=== PATIENT | female | born 1975 | race Caucasian/White ===

== ENCOUNTER → 2019-05-19 10:07 | Outpatient (BNVA) | payer OTHER, SELFPAY | PROVIDERS: Family Provider Family Medicine; PCP Family Medicine; Visit Provider Nurse Practitioner Family | DX: M25.512 Pain in left shoulder (principal) | CPT/HCPCS: 73030 ==

== ENCOUNTER → 2019-07-31 10:58 | Outpatient (BNVA) | payer OTHER, SELFPAY | PROVIDERS: Family Provider Family Medicine; PCP Family Medicine; Visit Provider Counselor Professional | DX: F43.0 Acute stress reaction (principal); F33.1 Major depressive disorder, recurrent, moderate; E11.9 Type 2 diabetes mellitus without complications; E78.5 Hyperlipidemia, unspecified | CPT/HCPCS: 90791; 80053; 80061; 83036 ==

== ENCOUNTER → 2019-11-03 10:26 | Outpatient (BNVA) | payer OTHER, SELFPAY | PROVIDERS: Family Provider Family Medicine; PCP Family Medicine; Visit Provider Family Medicine | DX: I10 Essential (primary) hypertension (principal); E78.5 Hyperlipidemia, unspecified; F32.9 Major depressive disorder, single episode, unspecified; E11.42 Type 2 diabetes mellitus with diabetic polyneuropathy; F32.1 Major depressive disorder, single episode, moderate; I25.10 Atherosclerotic heart disease of native coronary artery without angina pectoris; M77.11 Lateral epicondylitis, right elbow; F43.21 Adjustment disorder with depressed mood | CPT/HCPCS: 80048; 83036 ==

== ENCOUNTER → 2020-02-19 11:04 | Outpatient (BNVA) | payer OTHER, SELFPAY | PROVIDERS: Family Provider Family Medicine; PCP Family Medicine; Visit Provider Family Medicine | DX: I10 Essential (primary) hypertension; E11.42 Type 2 diabetes mellitus with diabetic polyneuropathy; F32.1 Major depressive disorder, single episode, moderate; R79.89 Other specified abnormal findings of blood chemistry; F41.1 Generalized anxiety disorder; F43.21 Adjustment disorder with depressed mood; F51.02 Adjustment insomnia | CPT/HCPCS: 80048; 83036; 84443 ==

== ENCOUNTER → 2020-04-02 17:21 | Outpatient (BNVA) | payer OTHER, SELFPAY | PROVIDERS: Family Provider Family Medicine; PCP Family Medicine; Visit Provider Nurse Practitioner Family | DX: Z20.822 Contact with and (suspected) exposure to COVID-19 (principal); J11.1 Influenza due to unidentified influenza virus with other respiratory manifestations | CPT/HCPCS: 87400; 87635 ==

== ENCOUNTER → 2020-06-08 10:54 | Outpatient (BNVA) | payer OTHER, SELFPAY | PROVIDERS: Family Provider Family Medicine; PCP Family Medicine; Visit Provider Family Medicine | DX: I10 Essential (primary) hypertension (principal); R79.89 Other specified abnormal findings of blood chemistry; E78.5 Hyperlipidemia, unspecified; F32.1 Major depressive disorder, single episode, moderate; F51.02 Adjustment insomnia; F41.1 Generalized anxiety disorder; E11.42 Type 2 diabetes mellitus with diabetic polyneuropathy; M54.5 Low back pain; M62.830 Muscle spasm of back; I25.10 Atherosclerotic heart disease of native coronary artery without angina pectoris | CPT/HCPCS: 80053; 80061; 83036; 84443 ==

== ENCOUNTER 2020-06-10 12:05 | Outpatient (CLI) | payer OTHER, SELFPAY ==
--- NOTE | 2020-06-10 12:22 | XR_ITS ---
WS: [id number] Thoracic spine, 3 views, 06/10/2020 Clinical Data: M54.5 - Low back pain Comparison: None. Findings: No compression fractures are seen. The disc heights are normal. There are clips in the right upper quadrant from a cholecystectomy. XR/XR thoracic spine 3V* [id number] Impression: Negative thoracic spine.
--- NOTE | 2020-06-10 12:22 | XR_ITS ---
WS: [id number] Lumbar spine, 3 views, 06/10/2020 Clinical Data: M54.5 - Low back pain Comparison: None. Findings: No compression fractures or subluxation is seen. No disc space narrowing is seen. The transverse proc esses and SI joints are normal. There is minimal anterior osteoarthritic spurring from L3 through L5. There are clips in the right up per quadrant from a cholecystectomy. 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
== END 2020-06-10 12:06 | disposition home or self-care (01) ==
LOC: RAD 12:08
PROVIDERS: PCP Family Medicine; Visit Provider Family Medicine
DX: M54.5 Low back pain (principal); M47.816 Spondylosis without myelopathy or radiculopathy, lumbar region
CPT/HCPCS: 72072; 72100

== ENCOUNTER 2020-07-27 06:00 | Outpatient (RCR) | payer OTHER, SELFPAY | END 2020-08-09 23:59 | disposition home or self-care (01) | LOC: MPT 06:00 | PROVIDERS: PCP Family Medicine; Referring Provider Family Medicine; Visit Provider Family Medicine | DX: M54.9 Dorsalgia, unspecified (principal); G89.29 Other chronic pain | CPT/HCPCS: 97110; 97140; 97162; G0283 ==

== ENCOUNTER → 2020-08-03 08:37 | Outpatient (BNVA) | payer OTHER, SELFPAY | PROVIDERS: PCP Family Medicine; Visit Provider Counselor Professional | DX: F41.1 Generalized anxiety disorder (principal); F33.2 Major depressive disorder, recurrent severe without psychotic features; Z63.4 Disappearance and death of family member | CPT/HCPCS: 90791 ==

== ENCOUNTER → 2020-08-11 10:18 | Outpatient (BNVA) | payer OTHER, SELFPAY | PROVIDERS: PCP Family Medicine; Visit Provider Family Medicine | DX: I10 Essential (primary) hypertension; R79.89 Other specified abnormal findings of blood chemistry; E78.5 Hyperlipidemia, unspecified; M62.830 Muscle spasm of back; E11.42 Type 2 diabetes mellitus with diabetic polyneuropathy; F51.02 Adjustment insomnia; F41.1 Generalized anxiety disorder; F32.1 Major depressive disorder, single episode, moderate | CPT/HCPCS: 80048; 83036; 84439; 84443; 84481 ==

== ENCOUNTER → 2020-11-17 15:25 | Outpatient (BNVA) | payer OTHER, SELFPAY | PROVIDERS: PCP Family Medicine; Visit Provider Family Medicine | DX: I10 Essential (primary) hypertension; M62.830 Muscle spasm of back; F32.1 Major depressive disorder, single episode, moderate; E11.42 Type 2 diabetes mellitus with diabetic polyneuropathy; F51.02 Adjustment insomnia; F41.1 Generalized anxiety disorder | CPT/HCPCS: 80048; 83036 ==

== ENCOUNTER → 2021-02-09 10:31 | Outpatient (BNVA) | payer OTHER, SELFPAY | PROVIDERS: PCP Family Medicine; Visit Provider Family Medicine | DX: I10 Essential (primary) hypertension (principal); E11.9 Type 2 diabetes mellitus without complications; A09 Infectious gastroenteritis and colitis, unspecified; K29.70 Gastritis, unspecified, without bleeding; R11.2 Nausea with vomiting, unspecified | CPT/HCPCS: 80053; 83036; 85025 ==

== ENCOUNTER 2021-03-28 14:19 | Emergency (ER) | payer BC, SELFPAY ==
--- NOTE | 2021-03-28 14:28 | ECG_ITS ---
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: : 1975 Requested By: Ilia Stanley Order Number: [id number] Reading MD: HODAN HWANG Measurements Intervals [place] Rate: 92 P: 44 OK: 138 QRS: 14 QRSD: 89 T: 21 QT: 363 QTc: 451 Interpretive Statements SINUS RHYTHM INFERIOR MYOCARDIAL INFARCTION , PROBABLY OLD [40+ ms Q WAVE AND/OR ST/T ABNORMALITY IN II/aVF] Compared to ECG 10/02/2018 08:39:41 No significant changes Electronically Signed On 03-28-2021 20:53:28 AUDIO NARRATOR by HODAN HWANG [email or web address], [email or web address]/[id number] f
--- NOTE | 2021-03-28 14:28 | XR_ITS ---
WS: [id number] Exam: XR chest 1V portable [id number] Date/Time of Exam: 03/28/2021 2:45 PM Reason For Exam: chest pain Comparison 10/01/2018. Findings: The lungs are clear and fully expanded. Costophrenic angles are sharp. No infiltrates. Bronchovascula r relief appears normal. Cardiac silhouette is unremarkable. Bony elements are intact. XR/XR chest 1V portable [id number] IMPRESSION: Unremarkable chest radiograph.
[2021-03-28 14:33] VITALS: BP 130/79; PULSE 97; RESP 18; O2SAT 92; BMI 33.0
--- NOTE | 2021-03-28 14:50 | ED_ITS ---
HPI - Chest Pain General: Chief Complaint: Chest Pain Stated Complaint: CHEST PAIN Time Seen by Provider: 03/28/21 14:28 History of Present Illness: HPI narrative: 45-year-old female presents emergency room complaint of chest pain. She had onset of chest pain about an hour and 1/2 to 2 hours prior to arrival while at rest. She took 3 sublingual nitro 15 minutes apart with no relief she also took 4 baby aspirin prior to calling EMS. None of this gave her any relief she does have pain radiating to her back and a little bit into her shoulder she denies a ny diaphoresis or shortness of breath. She has a known history of coronary artery disease with angioplasty with stents 2 years ago. Additionally she has a history of diabetes mellitus. Prior to today she had not had any other episodes of chest discomfort. Since her previous intervention. MD complaint: chest pain Pertinent past history: coronary artery disease Onset (ago): hour(s) (2) Timing of current episode: episodic Prior episodes: No Onset: during rest Pain location: substernal and left chest Pain radiation: back, left shoulder and right shoulder Severity: moderate Quality: tightness and heaviness Relieving factors: nothing Associated symptoms: Deny abdominal pain, diaphoresis, dyspnea, fever(s), leg edema, nausea, palpitations, sense of impending doom, syncope or vomiting Treatment prior to arrival: aspirin and nitroglycerin Review of Systems Const: Denies: fever(s) or diaphoresis ENMT: Denies: throat pain, ear or mastoid pain, nasal discharge or nasal congestion Card: Denies: palpitations or syncope Resp: Denies: dyspnea GI: Denies: abdominal pain, nausea or vomiting : Denies: flank pain, difficulty voiding, dysuria, urinary frequency or urinary urgency Skin/Breast: Denies: rash or pruritus [facility] ED PFSH: Medical History Anemia CAD (coronary artery disease) Carpal tunnel syndrome, bilateral Chest pain Diabetes Does not tolerate metformin. Diabetic neuropathy Dyslipidemia HTN (hypertension) Major depressive disorder Shortness of breath ST elevation (STEMI) myocardial infarction involving left circumflex coronary artery Surgical History S/P appendectomy S/P cholecystectomy S/P coronary artery stent placement x2 April 2018 Social History Smoking and tobacco status: former smoker Quit status (tobacco): has quit using tobacco Alcohol intake: never Desire information about alcohol rehabilitation?: No Desire information about substance/drug rehabilitation?: No History of recent travel: No Current gender identity: Female Female Reproductive History: Spontaneous abortions: No Physical Exam Const: COMMON NORMALS: no acute distress GENERAL APPEARANCE: cooperative and comfortable ORIENTATION/CONSCIOUSNESS: Yes awake, Yes oriented to person, Yes oriented to place and Yes oriented to time HENMT: COMMON NORMALS: normocephalic, atraumatic and hearing grossly normal bilaterally HEAD & SCALP: normocephalic and atraumatic Neck/C-Spine: COMMON NORMALS: no JVD Resp: COMMON NORMALS: normal respiratory effort, No retractions, No use of accessory muscles and clear to auscultation bilaterally AUSCULTATION: clear to auscultation bilaterally Cardio: COMMON NORMALS: no JVD, regular rate, regular rhythm and No murmurs present (Cardio) RATE: regular rate RHYTHM: regular rhythm GI: COMMON NORMALS: Soft to palpation and No hepatosplenomegaly present AUSCULTATION: Yes normoactive bowel sounds PALPATION: Yes Soft to palpation, No Tenderness to palpation present (GI), No Guarding due to palpation present (G I) and Yes No hepatosplenomegaly present Extremity: COMMON NORMALS: normal to inspection, capillary refill normal, no clubbing, cyanosis or edema, no calf tenderness and no pedal edema Neuro: SENSORIUM/ORIENTATION: Yes oriented to person, Yes oriented to place and Yes oriented to time Skin: COMMON NORMALS: no rashes or lesions noted GENERAL SKIN EXAM: no rashes or lesions noted Course Vital Signs: Vital signs: Vital Signs Pulse Rate 80 03/28/21 18:47 Respiratory Rate 18 03/28/21 18:47 Blood Pressure 129/74 03/28/21 18:47 Pulse Oximetry 98 03/28/21 18:47 MDM - Chest Pain MDM Narrative Medical decision making narrative: Discussed options with the patient she is not currently on any and long-acting nitro. We will change her lisinopril dose continue her aspirin add isosorbide mononitrate. We discussed other option including admission for now she would prefer to go home we will have her follow-up with her liner checker return to the emergency room if any further problems. Discussed with noncardiac on-call cardiology they concur. Lab Data Result diagrams: 03/28/21 13:15 03/28/21 13:15 Labs: Lab Results 03/28/21 03/28/21 03/28/21 13:15 13:15 13:15 WBC 10.3 10^3/uL H 10^3/uL (4.0-10.0) RBC 5.81 10^6/uL H 10^6/uL (4.1-5.3) Hgb 14.8 g/dL g/dL (11.5-15.3) Hct 46.3 % % (37.0-47.0) MCV 79.7 fl L fl (81-99) MCH 25.5 pg L pg (28.0-34.0) MCHC 32.0 g/dL g/dL (30.0-36.0) RDW 13.7 % % (12.1-15.1) Plt Count 214 10^3/cmm 10^3/cmm (130-400) MPV 10.2 fL fL (7.4-10.4) Neut % (Auto) 70.7 % % Lymph % (Auto) 21.3 % % [place] % (Auto) 4.5 % % Eos % (Auto) 1.5 % % Baso % (Auto) 0.7 % % Neut # (Auto) 7.26 10^3/uL 10^3/uL (1.8-7.7) Lymph # (Auto) 2.2 10^3/uL 10^3/uL (0.8-4.8) [place] # (Auto) 0.5 10^3/uL 10^3/uL (0.2-0.9) Eos # (Auto) 0.2 10^3/uL 10^3/uL (0.0-0.8) Baso # (Auto) 0.1 10^3/uL 10^3/uL (0.0-0.1) Nucleated RBC % (auto) 0 % % Nucleated RBCs # 0.0 /100WBC /100WBC Sodium 131 mmol/L L mmol/L (136-145) Potassium 4.0 mmol/L mmol/L (3.5-5.1) Chloride 95 mmol/L L mmol/L (98-107) Carbon Dioxide 13 mmol/L L mmol/L (22-29) Anion Gap 27.0 H (5-19) BUN 20 mg/dL mg/dL (6-20) Creatinine 0.9 mg/dL mg/dL (0.5-0.9) GFR Calculation 67.1 mL/min L mL/min (90-130) Glucose 305 mg/dL H mg/dL (65-115) POC Glucose Calculated Osmolality 286 mOsm/kg mOsm/kg (285-295) Calcium 8.7 mg/dL mg/dL (8.5-10.5) Total Bilirubin 1.7 mg/dL H mg/dL (0.15-1.2) AST 18 U/L U/L (0-32) ALT 16 U/L U/L (0-33) Alkaline Phosphatase 139 IU/L H IU/L (35-105) Troponin T Baseline 14 ng/L H ng/L (0-10) Troponin T 120 Minute Delta Troponin T Total Protein 7.1 g/dL g/dL (6.6-8.7) Albumin 4.2 g/dL g/dL (3.5-5.2) Globulin 2.9 g/dL g/dL (1.3-4.6) 03/28/21 03/28/21 03/28/21 14:56 15:57 16:35 WBC RBC Hgb Hct MCV MCH MCHC RDW Plt Count MPV Neut % (Auto) Lymph % (Auto) [place] % (Auto) Eos % (Auto) Baso % (Auto) Neut # (Auto) Lymph # (Auto) [place] # (Auto) Eos # (Auto) Baso # (Auto) Nucleated RBC % (auto) Nucleated RBCs # Sodium Potassium Chloride Carbon Dioxide Anion Gap BUN Creatinine GFR Calculation Glucose POC Glucose 179 mg/dL H mg/dL (70-110) Calculated Osmolality Calcium Total Bilirubin AST ALT Alkaline Phosphatase Troponin T Baseline Troponin T 120 Minute Cancelled 11.74 ng/L H ng/L (0-10) Delta Troponin T Cancelled -2.26 ABS# L ABS# (0-10) Total Protein Albumin Globulin Discharge Plan Discharge Patient Disposition: Home Clinical Impression: Atypical chest pain, HTN (hypertension), CAD (coronary artery disease), Diabetes Condition: Stable Prescriptions: New isosorbide mononitrate 30 mg tablet extended release 24 hr 30 mg PO DAILY Qty: 30 0RF Changed lisinopril 40 mg tablet 20 mg PO DAILY 30 Days Qty: 30 2RF No Action atorvastatin 40 mg tablet 40 mg PO DAILY 90 Days Qty: 90 3RF nitroglycerin 0.4 mg tablet, sublingual 0.4 mg sublingual Q5M PRN (Reason: chest pain) Qty: 25 3RF Rx Instructions: do not exceed 3 doses per episode glimepiride 4 mg tablet 8 mg PO DAILY 30 Days Qty: 60 2RF hydroxyzine HCl 25 mg tablet 25 mg PO BID PRN (Reason: panic or insomnia) Qty: 60 2RF ondansetron HCl [Zofran] 4 mg tablet 4 mg PO Q8H PRN (Reason: nausea and vomiting) Qty: 30 1RF fluoxetine 40 mg capsule 40 mg PO DAILY 30 Days Qty: 30 2RF Farxiga 10 mg tablet 10 mg PO DAILY 30 Days Qty: 30 0RF aspirin 81 mg Tablet,Chewable 81 mg PO DAILY 0RF clopidogrel 75 mg tablet 75 mg PO DAILY 0RF gabapentin 300 mg capsule 300 mg PO QID 0RF metoprolol succinate 25 mg tablet extended release 24 hr 12.5 mg PO BEDTIME 0RF cyclobenzaprine 5 mg tablet 5 - 10 mg PO TID MDD 6 tabs PRN (Reason: muscle spasm) 0RF Trulicity 3 mg/0.5 mL pen injector 3 mg SUBCUT Q7D 0RF Rx Instructions: ON SUNDAYS Discharge Orders: Discharge ED (Routine); Ordered 03/28/21 Ordered By: Ilia Buck Referrals: Serena Caicedo MD [Primary Care Provider] - Discharge Diet: Usual diet Discharge Activity: Limit activity as instructed Patient Instructions: Opioid Safety Activity Restrictions/Additional Instructions: Avoid strenuous activity. Case management will set up a Lexiscan sestamibi stress test. Follow-up with your primary care doctor or your liner checker within the next Coding Level of Care Code ED Proof Load Mechanic for Aj Sam
[2021-03-28 15:21] LABS: Basophils # 0.1 10^3/uL (0.0-0.1); Basophils % 0.7 %; Eosinophils # 0.2 10^3/uL (0.0-0.8); Eosinophils % 1.5 %; Hematocrit 46.3 % (37.0-47.0); Hemoglobin 14.8 g/dL (11.5-15.3); Lymphocytes # 2.2 10^3/uL (0.8-4.8); Lymphocytes % 21.3 %; Mean Corpuscular Hemoglobin 25.5 pg (28.0-34.0); Mean Corpuscular Volume 79.7 fl (81-99); Mean Platelet Volume 10.2 fL (7.4-10.4); Monocytes # 0.5 10^3/uL (0.2-0.9); Monocytes % 4.5 %; Neutrophils # 7.26 10^3/uL (1.8-7.7); Neutrophils % 70.7 %; Nucleated Red Blood Cells % 0 %; Platelet Count 214 10^3/cmm (130-400); Red Blood Count 5.81 10^6/uL (4.1-5.3); Red Cell Distribution Width 13.7 % (12.1-15.1); White Blood Count 10.3 10^3/uL (4.0-10.0)
[2021-03-28 15:36] LABS: Alanine Aminotransferase 16 U/L (0-33); Albumin Level 4.2 g/dL (3.5-5.2); Alkaline Phosphatase 139 IU/L (35-105); Blood Urea Nitrogen 20 mg/dL (6-20); Calcium 8.7 mg/dL (8.5-10.5); Carbon Dioxide 13 mmol/L (22-29); Chloride 95 mmol/L (98-107); Globulin 2.9 g/dL (1.3-4.6); Glomerular Filtration Rate 67.1 mL/min (90-130); Glucose 305 mg/dL (65-115); Osmolality Calculated 286 mOsm/kg (285-295); Sodium 131 mmol/L (136-145); Total Bilirubin 1.7 mg/dL (0.15-1.2); Total Protein 7.1 g/dL (6.6-8.7)
[2021-03-28 15:37] LABS: Troponin(5th) Baseline 14 ng/L (0-10)
[2021-03-28 15:39] LABS: Aspartate Amino Transferase 18 U/L (0-32)
[2021-03-28 16:00] VITALS: BP 119/89; PULSE 91; RESP 13; O2SAT 95
--- NOTE | 2021-03-28 16:28 | ECG_ITS ---
[facility] Test Date: 2021-03-28 Pat Name: Kimberly Agarwal Department: Room: Gender: Female Lay Brother: : 1975 Requested By: Ilia Stanley Order Number: [id number] Reading MD: HODAN HWANG Measurements Intervals [place] Rate: 88 P: 45 DC: 144 QRS: 22 QRSD: 89 T: 40 QT: 384 QTc: 467 Interpretive Statements SINUS RHYTHM Compared to ECG 10/02/2018 08:39:41 Myocardial infarct finding no longer present Electronically Signed On 03-28-2021 20:56:51 CORPORATE SPECIALIST by HODAN HWANG [id number]
[2021-03-28 16:59] LABS: Troponin 5 2HR 11.74 ng/L (0-10)
[2021-03-28 17:00] VITALS: BP 122/84; PULSE 91; RESP 23; O2SAT 94
[2021-03-28 17:10] LABS: Troponin 5 2HR Delta -2.26 ABS# (0-10)
[2021-03-28 17:58] LABS: Glucose Point of Care 179 mg/dL (70-110)
[2021-03-28 18:47] VITALS: BP 129/74; PULSE 80; RESP 18; O2SAT 98
--- NOTE | 2021-04-06 13:08 | DCPLANNER ---
Addendum entered by Dana Dale 04/15/21 11:06: Patient had a follow up appointment scheduled for 04.08.21 with [facility] - patient did attend appointment. Original Note: phone manager had message to schedule a follow up appointment for patient with [facility]. phone manager called [facility], spoke with Serena, gave clinic patients information. A follow up appointment was scheduled for Thursday, April 08, 2021 at 8:45 with GENERAL LABOR, Kenya Harley. phone manager called patient, unable to speak with patient at this time. phone manager did leave a voicemail for patient with the appointment information.
== END 2021-03-28 18:49 | disposition home or self-care (01) ==
PROVIDERS: Emergency Provider Family Medicine; PCP Family Medicine
DX: R07.89 Other chest pain (principal); I10 Essential (primary) hypertension; I25.10 Atherosclerotic heart disease of native coronary artery without angina pectoris; E11.9 Type 2 diabetes mellitus without complications; Z79.84 Long term (current) use of oral hypoglycemic drugs; Z79.02 Long term (current) use of antithrombotics/antiplatelets; Z79.82 Long term (current) use of aspirin; E78.5 Hyperlipidemia, unspecified; I25.2 Old myocardial infarction; Z87.891 Personal history of nicotine dependence
CPT/HCPCS: 36415; 36416; 71045; 80053; 82962; 84484; 85025; 93005; 99283

== ENCOUNTER → 2021-05-18 10:33 | Outpatient (BNVA) | payer BC, SELFPAY | PROVIDERS: PCP Family Medicine; Visit Provider Family Medicine | DX: E78.5 Hyperlipidemia, unspecified (principal); E11.9 Type 2 diabetes mellitus without complications; I10 Essential (primary) hypertension | CPT/HCPCS: 80048; 80061; 83036 ==

== ENCOUNTER → 2021-08-23 10:37 | Outpatient (BNVA) | payer BC, SELFPAY | PROVIDERS: PCP Family Medicine; Visit Provider Family Medicine | DX: E11.9 Type 2 diabetes mellitus without complications (principal); E11.42 Type 2 diabetes mellitus with diabetic polyneuropathy; I10 Essential (primary) hypertension; B00.1 Herpesviral vesicular dermatitis; G56.03 Carpal tunnel syndrome, bilateral upper limbs; I25.10 Atherosclerotic heart disease of native coronary artery without angina pectoris | CPT/HCPCS: 83036 ==

== ENCOUNTER → 2021-12-07 11:36 | Outpatient (BNVA) | payer BC, SELFPAY | PROVIDERS: PCP Family Medicine; Visit Provider Family Medicine | DX: J30.9 Allergic rhinitis, unspecified (principal); I10 Essential (primary) hypertension; E11.9 Type 2 diabetes mellitus without complications; E11.42 Type 2 diabetes mellitus with diabetic polyneuropathy; E78.5 Hyperlipidemia, unspecified; I25.10 Atherosclerotic heart disease of native coronary artery without angina pectoris; F32.1 Major depressive disorder, single episode, moderate; G25.81 Restless legs syndrome; R11.2 Nausea with vomiting, unspecified; L01.00 Impetigo, unspecified | CPT/HCPCS: 80053; 80061; 83036 ==

== ENCOUNTER → 2022-01-26 10:41 | Outpatient (BNVA) | payer BC, SELFPAY | PROVIDERS: PCP Family Medicine; Visit Provider Emergency Medicine | DX: R30.0 Dysuria (principal); N39.0 Urinary tract infection, site not specified; E11.42 Type 2 diabetes mellitus with diabetic polyneuropathy; I10 Essential (primary) hypertension; R81 Glycosuria; L03.90 Cellulitis, unspecified | CPT/HCPCS: 81000; 87086 ==

== ENCOUNTER → 2022-01-30 11:00 | Outpatient (BNVA) | payer BC, SELFPAY | PROVIDERS: PCP Family Medicine; Visit Provider Emergency Medicine | DX: E11.42 Type 2 diabetes mellitus with diabetic polyneuropathy (principal); I10 Essential (primary) hypertension | CPT/HCPCS: 80048; 83036 ==

== ENCOUNTER 2022-03-24 08:48 | Outpatient (CLI) | payer BC, SELFPAY ==
--- NOTE | 2022-03-24 | ECG_ITS ---
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 Interpretive Statements NAME OF STUDY: LEXISCAN SESTAMIBI STRESS TEST INDICATION: Angina PROCEDURE: At the baseline, the EKG revealed normal sinus rhythm with some nonspecific T wave changes. The baseline heart was 72 bpm with a blood pressue of 135/86 mm of Hg Lexiscan was infused over a period of 20 seconds. A total of 0.4 milligrams of Lexiscan was infused. The stress phase was continued for a total of 5 minutes. Heart rate at the end of the stress phase was 93 bpm with a blood pressure 137/83 mm of Hg. The EKG at the peak infusion revealed no significant changes. Sestamibi was injected 20 seconds after the Lexiscan infusion. Heart rate at the end of the recovery phase was 88 bpm with a blood pressure of 122/91 mm of Hg. CONCLUSION: 1. No significant EKG changes with the LexiScan infusion 2. No LexiScan induced chest pain or cardiac arrhythmia 3. Normal blood pressure and heart rate response 4. Sestamibi/sestamibi perfusion scan pending; see separate report. Electronically Signed On 03-24-2022 11:58:37 CHILD SUPPORT INVESTIGATOR by Ainsley Quinn M.D. [id number]
[2022-03-24 09:19] VITALS: BMI 32.9
--- NOTE | 2022-03-24 09:20 | NMCV_ITS ---
NM gema perf SPECT r/s* [id number] Kimberly Agarwal Age: 46 Gender: F : 1975 Exam Date: 03/24/2022 09:47 Ordering Phys: Kenya Harley Technologist: SADIE Lang Exam Location: [facility] Indications: ATHEROSCLEROTIC HEART DISEASE OF HOH CORONARY ARTERY STRESS TEST Please see separate stress test report in [facility] for full findings IMAGE PROTOCOL Rest/Stress 1 Lexiscan Day Radiopharmaceutical Dose (mCi) Administration Site Administered by Rest: Tc-99m 10.8 IV SADIE Nguyen Sestamibi Stress:Tc-99m 32.9 IV SADIE Nguyen Sestamibi Rest: 24-Mar-2022 60 Discovery 630 Stress: 24-Mar-2022 30 Discovery 630 0.4mg Lexiscan. Images obtained in supine and prone position. SPECT RESULTS Technical Quality: Excellent Raw Data Analysis: Normal Image Corrections: No attenuation or motion correction applied Summed Stress Score: 4 Summed Rest Score: 4 Summed Difference Score: 0 PERFUSION FINDINGS There is medium sized fixed perfusion defect seen in inferolateral wall. This is consistent with prior infarct in left circumflex artery territory. No evidence of ischemia seen. FUNCTIONAL RESULTS (calculated via Gated SPECT) Stress Image LV EF (%): 77 Stress EDV (mL):64 TID: 0.97 Stress ESV (mL):15 FUNCTIONAL FINDINGS: There is normal left ventricular systolic function. IMPRESSIONS 1. Medium sized prior infarct is seen in left circumflex artery territory 2. LV systolic function is normal. Randy Gomes MD (Electronically Signed) Final Date: 24 March 2022 13:18 S
[2022-03-24] MEDS: regadenoson 0.4 Mg/5 ml Syringe IVP (10:12)
[2022-03-24 10:29] VITALS: BP 122/91; PULSE 89
== END 2022-03-24 08:49 | disposition home or self-care (01) ==
PROVIDERS: PCP Family Medicine; Visit Provider Nurse Practitioner Family
DX: I25.10 Atherosclerotic heart disease of native coronary artery without angina pectoris (principal)
CPT/HCPCS: 36415; 78452; 93017; 96374; A9500; J2785

== ENCOUNTER → 2022-05-10 09:33 | Outpatient (BNVA) | payer BC, SELFPAY | PROVIDERS: PCP Family Medicine; Visit Provider Family Medicine | DX: N18.9 Chronic kidney disease, unspecified (principal); E11.42 Type 2 diabetes mellitus with diabetic polyneuropathy; I10 Essential (primary) hypertension; I25.10 Atherosclerotic heart disease of native coronary artery without angina pectoris; F32.1 Major depressive disorder, single episode, moderate; J30.9 Allergic rhinitis, unspecified; G25.81 Restless legs syndrome; R11.2 Nausea with vomiting, unspecified; Z68.33 Body mass index [BMI] 33.0-33.9, adult | CPT/HCPCS: 80048; 83036 ==

== ENCOUNTER 2022-05-17 19:40 | Emergency (ER) | payer BC, SELFPAY ==
[2022-05-17 20:37] VITALS: BP 134/94; RESP 20; BMI 33.0
[2022-05-17 21:25] LABS: Basophils % 0.5 %; Eosinophils # 0.2 10^3/uL (0.0-0.8); Eosinophils % 2.2 %; Hematocrit 47.8 % (37.0-47.0); Hemoglobin 15.3 g/dL (11.5-15.3); Lymphocytes # 2.1 10^3/uL (0.8-4.8); Lymphocytes % 26.6 %; Mean Corpuscular Hemoglobin 25.5 pg (28.0-34.0); Mean Corpuscular Volume 79.5 fl (81-99); Mean Platelet Volume 9.5 fL (7.4-10.4); Monocytes # 0.4 10^3/uL (0.2-0.9); Monocytes % 4.8 %; Neutrophils # 5.16 10^3/uL (1.8-7.7); Neutrophils % 64.2 %; Nucleated Red Blood Cells % 0 %; Platelet Count 231 10^3/cmm (130-400); Red Blood Count 6.01 10^6/uL (4.1-5.3); Red Cell Distribution Width 13.1 % (12.1-15.1); White Blood Count 8.1 10^3/uL (4.0-10.0)
[2022-05-17 21:44] LABS: Alanine Aminotransferase 25 U/L (0-33); Albumin Level 4.3 g/dL (3.5-5.2); Alkaline Phosphatase 125 U/L (35-105); Anion Gap 15.3 (5-19); Aspartate Amino Transferase 14 U/L (0-32); Blood Urea Nitrogen 14 mg/dL (6-20); Calcium 9.7 mg/dL (8.5-10.5); Carbon Dioxide 25 mmol/L (22-29); Chloride 100 mmol/L (98-107); Globulin 3.3 g/dL (1.3-4.6); Glomerular Filtration Rate 66.8 mL/min (90-130); Glucose 195 mg/dL (65-115); Osmolality Calculated 288 mOsm/kg (285-295); Potassium 4.3 mmol/L (3.5-5.1); Sodium 136 mmol/L (136-145); Total Protein 7.6 g/dL (6.6-8.7)
[2022-05-17 21:52] VITALS: BP 123/85; PULSE 85; RESP 16; TEMP 36.8; O2SAT 96
--- NOTE | 2022-05-17 22:38 | ED_ITS ---
HPI - General Adult General: Chief complaint: General Medical Stated complaint: Blood Sugar High 500 Time Seen by Provider: 05/17/22 22:35 Source: patient Mode of arrival: ambulatory Limitations: no limitations History of Present Illness: 46-year-old female has a history of diabetes she is on oral medications does not take insulin she states that her meter was reading in the 500s and 495 at home states she had a mild headache and she became concerned she is unsure if her readings were correct is here her blood sugars been reading normally states she feels much improved has no complaints at this time no vomiting no diarrhea Associated symptoms: Deny chest pain, dyspnea, headache(s), nausea, rash or vomiting Review of Systems Const: Denies: fever(s), chills, body aches or change in appetite Eyes: Denies: blurry vision or eye discomfort ENMT: Denies: throat pain or dental pain Card: Denies: chest pain Resp: Denies: dyspnea GI: Denies: abdominal pain, nausea, vomiting or diarrhea : Denies: dysuria Musc: Denies: neck pain or back pain Skin/Breast: Denies: rash Neuro: Denies: headache(s) Psych: Denies: depression Himanshu/Lymph: Denies: easy bruising All/Imm: Denies: urticaria PFSH ED PFSH: Medical History Anemia CAD (coronary artery disease) Carpal tunnel syndrome, bilateral Chest pain Diabetes Does not tolerate metformin. Diabetic neuropathy Dyslipidemia HTN (hypertension) Major depressive disorder Shortness of breath ST elevation (STEMI) myocardial infarction involving left circumflex coronary artery Surgical History S/P appendectomy S/P cholecystectomy S/P coronary artery stent placement x2 April 2018 Social History Smoking and tobacco status: never smoked Quit status (tobacco): has quit using tobacco Alcohol intake: never Desire information about alcohol rehabilitation?: No Desire information about substance/drug rehabilitation?: No Current gender identity: Female Female Reproductive History: Spontaneous abortions: No Physical Exam Const: COMMON NORMALS: no acute distress, patient oriented x3 and healthy appearing HENMT: COMMON NORMALS: normocephalic and atraumatic HEAD & SCALP: normocephalic and atraumatic Eye: COMMON NORMALS: Equal, round and reactive pupils present and EOMs intact bilaterally PUPIL: Yes Equal, round and reactive pupils present Neck/C-Spine: COMMON NORMALS: full ROM and supple Chest: COMMONS NORMALS: normal inspection of the chest and normal palpation of entire chest wall Resp: COMMON NORMALS: normal respiratory effort, No retractions, No use of accessory muscles and clear to auscultation bilaterally AUSCULTATION: clear to auscultation bilaterally Cardio: COMMON NORMALS: regular rate, regular rhythm and No murmurs present (Cardio) RATE: regular rate RHYTHM: regular rhythm GI: COMMON NORMALS: Normal to inspection, nondistended, normoactive bowel sounds present, Soft to palpation, non-tender and no masses PALPATION: Yes Soft to palpation Extremity: COMMON NORMALS: normal to inspection and full ROM Neuro: COMMON NORMALS: patient oriented x3, moves all extremities and no focal motor deficits Psych: COMMON NORMALS: mental status grossly normal, Normal thought process present and cooperative THOUGHT PROCESS: Normal thought process present Skin: COMMON NORMALS: no rashes or lesions noted and no wounds GENERAL SKIN EXAM: no rashes or lesions noted Course Vital Signs: Vital signs: Vital Signs Temperature 98.2 F 05/17/22 21:52 Pulse Rate 85 05/17/22 21:52 Respiratory Rate 16 05/17/22 21:52 Blood Pressure 123/85 05/17/22 21:52 Pulse Oximetry 96 05/17/22 21:52 Oxygen Delivery Me thod 05/17/22 21:52 MDM - General Adult Medical Decision Making Patient presents with concern for hyperglycemia she is not hyperglycemic here blood work here is been all normal she feels improved here as well I did inform her her meter could be incorrect at home I would check her sugar again at home and if it is reading high it is likely incorrect and she needs a new meter. Lab Data 05/17/22 21:13 05/17/22 21:13 Laboratory Results WBC 8.1 10^3/uL (4.0-10.0) 05/17/22 21:13 RBC 6.01 10^6/uL (4.1-5.3) H 05/17/22 21:13 Hgb 15.3 g/dL (11.5-15.3) 05/17/22 21:13 Hct 47.8 % (37.0-47.0) H 05/17/22 21:13 MCV 79.5 fl (81-99) L 05/17/22 21:13 MCH 25.5 pg (28.0-34.0) L 05/17/22 21:13 MCHC 32.0 g/dL (30.0-36.0) 05/17/22 21:13 RDW 13.1 % (12.1-15.1) 05/17/22 21:13 Plt Count 231 10^3/cmm (130-400) 05/17/22 21:13 MPV 9.5 fL (7.4-10.4) 05/17/22 21:13 Neut % (Auto) 64.2 % 05/17/22 21:13 Lymph % (Auto) 26.6 % 05/17/22 21:13 [place] % (Auto) 4.8 % 05/17/22 21:13 Eos % (Auto) 2.2 % 05/17/22 21:13 Baso % (Auto) 0.5 % 05/17/22 21:13 Neut # (Auto) 5.16 10^3/uL (1.8-7.7) 05/17/22 21:13 Lymph # (Auto) 2.1 10^3/uL (0.8-4.8) 05/17/22 21:13 [place] # (Auto) 0.4 10^3/uL (0.2-0.9) 05/17/22 21:13 Eos # (Auto) 0.2 10^3/uL (0.0-0.8) 05/17/22 21:13 Baso # (Auto) 0.0 10^3/uL (0.0-0.1) 05/17/22 21:13 Nucleated RBC % (auto) 0 % 05/17/22 21: Nucleated RBCs # 0.0 /100WBC 05/17/22 21:13 Sodium 136 mmol/L (136-145) 05/17/22 21:13 Potassium 4.3 mmol/L (3.5-5.1) 05/17/22 21:13 Chloride 100 mmol/L (98-107) 05/17/22 21: Carbon Dioxide 25 mmol/L (22-29) 05/17/22 21:13 Anion Gap 15.3 (5-19) 05/17/22 21:13 BUN 14 mg/dL (6-20) 05/17/22 21:13 Creatinine 0.9 mg/dL (0.5-0.9) 05/17/22 21:13 GFR Calculation 66.8 mL/min (90-130) L 05/17/22 21:13 Glucose 195 mg/dL (65-115) H 05/17/22 21:13 Calculated Osmolality 288 mOsm/kg (285-295) 05/17/22 21:13 Calcium 9.7 mg/dL (8.5-10.5) 05/17/22 21:13 Total Bilirubin 1.0 mg/dL (0.15-1.2) 05/17/22 21:13 AST 14 U/L (0-32) 05/17/22 21:13 ALT 25 U/L (0-33) 05/17/22 21:13 Alkaline Phosphatase 125 U/L (35-105) H 05/17/22 21:13 Total Protein 7.6 g/dL (6.6-8.7) 05/17/22 21:13 Albumin 4.3 g/dL (3.5-5.2) 05/17/22 21:13 Globulin 3.3 g/dL (1.3-4.6) 05/17/22 21:13 Discharge Plan Discharge Patient Disposition: Home Clinical Impression: Hyperglycemia Condition: Stable Prescriptions: No Action nitroglycerin 0.4 mg tablet, sublingual 0.4 mg sublingual Q5M PRN (Reason: chest pain) Qty: 25 3RF Rx Instructions: do not exceed 3 doses per episode Trulicity 4.5 mg/0.5 mL pen injector 4.5 mg SUBCUT Q7D 28 Days Qty: 2 5RF Hold Instructions: Home Medication placed on hold at Doctor's office Rx Instructions: ON SUNDAYS atorvastatin 40 mg tablet 40 mg PO DAILY 90 Days Qty: 90 3RF valacyclovir 500 mg tablet 500 mg PO Q12H 3 Days Qty: 6 1RF clopidogrel 75 mg tablet 75 mg PO DAILY 90 Days Qty: 90 1RF cyclobenzaprine 5 mg tablet See Rx Instructions .ROUTE .COMPLEX Qty: 30 2RF Dose Instruction: TAKE 1 TO 2 TABLETS BY MOUTH THREE TIMES DAILY NEEDED FOR MUSCLE SPASM . DO NOT EXCEED 6 PER 24 HOURS Rx Instructions: TAKE 1 TO 2 TABLETS BY MOUTH THREE TIMES DAILY NEEDED FOR MUSCLE SPASM . DO NOT EXCEED 6 PER 24 HOURS Farxiga 10 mg tablet 10 mg PO DAILY 30 Days Qty: 30 5RF fluoxetine 40 mg capsule 40 mg PO DAILY 90 Days Qty: 90 1RF fluticasone propionate 50 mcg/actuation spray,suspension 1 spray intranasal Q12H Qty: 15.8 5RF Rx Instructions: administer into each nostril gabapentin 600 mg tablet 600 mg PO TID 90 Days Qty: 270 1RF glipizide 10 mg tablet extended release 24hr 10 mg PO BID 90 Days Qty: 180 1RF lisinopril 20 mg tablet 20 mg PO DAILY 90 Days Qty: 90 1RF isosorbide mononitrate 30 mg tablet extended release 24 hr 30 mg PO DAILY 90 Days Qty: 90 1RF metoprolol succinate 25 mg tablet extended release 24 hr 12.5 mg PO BEDTIME 90 Days Qty: 45 1RF ropinirole 0.5 mg tablet 0.5 mg PO .at bedtime 30 Days Qty: 90 1RF ondansetron HCl 4 mg tablet 4 mg PO Q8H PRN (Reason: nausea and vomiting) Qty: 30 5RF Ozempic 0.25 mg or 0.5 mg(2 mg/1.5 mL) pen injector 0.25 mg SUBCUT .WEEKLY 30 Days Qty: 1.5 2RF hydroxyzine HCl 25 mg tablet See Rx Instructions .ROUTE .COMPLEX 90 Days Qty: 180 1RF Dose Instruction: TAKE 1 TABLET BY MOUTH TWICE DAILY NEEDED FOR PANIC OR INSOMNIA Rx Instructions: TAKE 1 TABLET BY MOUTH TWICE DAILY NEEDED FOR PANIC OR INSOMNIA aspirin 81 mg Tablet,Chewable 81 mg PO DAILY Discharge Orders: Discharge ED (Routine); Ordered 05/17/22 Ordered By: Bj Wilkins Referrals: Serena Caicedo MD [Primary Care Provider] - Discharge Diet: Advance as tolerated Discharge Activity: Resume usual activity Patient Instructions: Diabetic Hyperglycemia (ED) Coding Level of Care Code ED Photogravure Press Operator for Aj Sam
[2022-05-17 23:05] VITALS: BP 122/84; PULSE 97; RESP 15; TEMP 36.6; O2SAT 97
[2022-05-17 23:09] VITALS: BP 122/84; PULSE 97; RESP 15
[2022-05-18 14:38] LABS: Glucose Point of Care 180 mg/dL (70-110)
== END 2022-05-17 23:10 | disposition home or self-care (01) ==
PROVIDERS: Emergency Provider Emergency Medicine; PCP Family Medicine
DX: E11.65 Type 2 diabetes mellitus with hyperglycemia (principal); Z79.85 Long-term (current) use of injectable non-insulin antidiabetic drugs; Z79.82 Long term (current) use of aspirin; Z79.84 Long term (current) use of oral hypoglycemic drugs; I25.10 Atherosclerotic heart disease of native coronary artery without angina pectoris; I10 Essential (primary) hypertension; E78.5 Hyperlipidemia, unspecified; I25.2 Old myocardial infarction; Z87.891 Personal history of nicotine dependence
CPT/HCPCS: 36415; 36416; 80053; 82962; 85025; 99283

== ENCOUNTER → 2022-11-06 13:55 | Outpatient (BNVA) | payer BC, SELFPAY | PROVIDERS: PCP Family Medicine; Visit Provider Family Medicine | DX: E11.9 Type 2 diabetes mellitus without complications (principal); E78.5 Hyperlipidemia, unspecified; I10 Essential (primary) hypertension; I25.10 Atherosclerotic heart disease of native coronary artery without angina pectoris; F32.1 Major depressive disorder, single episode, moderate; E11.42 Type 2 diabetes mellitus with diabetic polyneuropathy; G25.81 Restless legs syndrome; B00.1 Herpesviral vesicular dermatitis; I73.00 Raynaud's syndrome without gangrene; N18.9 Chronic kidney disease, unspecified; Z68.33 Body mass index [BMI] 33.0-33.9, adult; B00.9 Herpesviral infection, unspecified | CPT/HCPCS: 80053; 80061; 83036 ==

== ENCOUNTER → 2022-11-09 12:07 | Outpatient (BNVA) | payer BC, SELFPAY | PROVIDERS: PCP Family Medicine; Referring Provider Family Medicine; Visit Provider Family Medicine | DX: E78.5 Hyperlipidemia, unspecified (principal); I10 Essential (primary) hypertension; E11.42 Type 2 diabetes mellitus with diabetic polyneuropathy; E11.9 Type 2 diabetes mellitus without complications | CPT/HCPCS: 80053; 80061; 83036 ==

== ENCOUNTER 2022-12-17 20:45 | Emergency (ER) | payer BC, SELFPAY ==
[2022-12-17 20:46] VITALS: BP 153/74; PULSE 98; RESP 16; TEMP 36.7; O2SAT 96; BMI 33.0
[2022-12-17 20:56] VITALS: BP 138/107; PULSE 100; RESP 24; O2SAT 99
--- NOTE | 2022-12-17 21:01 | ED_ITS ---
HPI - Anxiety General: Chief Complaint: Anxiety Stated Complaint: PANIC ATTACK Time Seen by Provider: 12/17/22 20:46 History of Present Illness: 47-year-old female comes in today with complaints of anxiety and chest pain. Patient reports that she was cleaning the house and her started arguing with her causing her to have chest pain. Patient at this time thinks that she was having a panic attack but is very tearful. Patient appears nontoxic. Patient denies any suicidal or homicidal ideation. Patient does have diabetes mellitus type 2, history of hypertension and hypercholesteremia, and major depressive disorder. Associated symptoms: Reports chest pain Review of Systems General: Reports: 10 or more systems reviewed and unremarkable except in HPI and below Card: Reports: chest pain Resp: Reports: dyspnea Psych: Reports: anxiety PFSH ED PFSH: Medical History (Updated 12/17/22 @ 21:58 by CHASITY Car) Anemia CAD (coronary artery disease) Carpal tunnel syndrome, bilateral Chest pain Diabetes Does not tolerate metformin. Diabetic neuropathy Dyslipidemia HTN (hypertension) Major depressive disorder Shortness of breath ST elevation (STEMI) myocardial infarction involving left circumflex coronary artery Surgical History S/P appendectomy S/P cholecystectomy S/P coronary artery stent placement x2 April 2018 Social History Smoking and tobacco status: never smoked Quit status (tobacco): has quit using tobacco Alcohol intake: never Desire information about alcohol rehabilitation?: No Substance/Drug Use: never Desire information about substance/drug rehabilitation?: No Current gender identity: Female Female Reproductive History: Spontaneous abortions: No Physical Exam Const: COMMON NORMALS: alert HENMT: COMMON NORMALS: normocephalic HEAD & SCALP: normocephalic Neck/C-Spine: COMMON NORMALS: full ROM Resp: COMMON NORMALS: normal respiratory effort and clear to auscultation bilaterally AUSCULTATION: clear to auscultation bilaterally Cardio: COMMON NORMALS: regular rate RATE: regular rate GI: COMMON NORMALS: non-tender Extremity: COMMON NORMALS: full ROM Neuro: SENSORIUM/ORIENTATION: Yes alert Skin: COMMON NORMALS: turgor normal GENERAL SKIN EXAM: turgor normal Course Vital Signs: Vital signs: Vital Signs Temperature 98.0 F 12/17/22 20:46 Pulse Rate 100 12/17/22 20:56 Respiratory Rate 24 H 12/17/22 20:56 Blood Pressure 138/107 12/17/22 20:56 Pulse Oximetry 99 12/17/22 20:56 Oxygen Delivery Me thod Room Air 12/17/22 20:56 MDM - Anxiety Medical Decision Making 47-year-old female comes in today with complaints of anxiety, shortness of breath, and chest pressure. On exam patient is anxious and tearful. Lungs are clear to auscultation. Vital signs are normal. Differential diagnosis includes not limited to ACS, anxiety, panic attack, panic disorder, major depressive disorder, arrhythmia. Laboratory values were unremarkable. EKG showed normal sinus rhythm. Patient was given 2 mg of Ativan on arrival to the ER and was much improved with anxiety and symptoms. Believe patient probably had a acute anxiety which has resolved with the use of lorazepam. Recommended patient follow-up with primary care for further evaluation and treatment and consideration of other medication options. Patient reported understanding and agreed to plan. Patient was discharged to home and was stable. Lab Data 12/17/22 21:14 12/17/22 21:14 Laboratory Results WBC 6.46 10^3/uL (3.29-11.43) 12/17/22 21:14 RBC 5.44 10^6/uL (3.85-5.65) 12/17/22 21:14 Hgb 13.90 g/dL (11.27-16.99) 12/17/22 21:14 Hct 42.7 % (36-47) 12/17/22 21:14 MCV 78.5 fl (85-98) L 12/17/22 21:14 MCH 25.6 pg (27-33) L 12/17/22 21:14 MCHC 32.6 g/dL (30-55) 12/17/22 21:14 RDW 13.4 % (12.1-15.1) 12/17/22 21:14 Plt Count 199 10^3/cmm (157-399) 12/17/22 21:14 MPV 9.2 fL (7.4-10.4) 12/17/22 21:14 Neut % (Auto) 66.1 % 12/17/22 21:14 Lymph % (Auto) 24.3 % 12/17/22 21:14 [place] % (Auto) 4.6 % 12/17/22 21:14 Eos % (Auto) 3.3 % 12/17/22 21:14 Baso % (Auto) 0.5 % 12/17/22 21:14 Neut # (Auto) 4.27 10^3/uL (1.8-7.7) 12/17/22 21:14 Lymph # (Auto) 1.6 10^3/uL (0.8-4.8) 12/17/22 21:14 [place] # (Auto) 0.3 10^3/uL (0.2-0.9) 12/17/22 21:14 Eos # (Auto) 0.2 10^3/uL (0.0-0.8) 12/17/22 21:14 Baso # (Auto) 0.0 10^3/uL (0.0-0.1) 12/17/22 21:14 Nucleated RBC % (auto) 0 % 12/17/22 21:14 Nucleated RBCs # 0.0 /100WBC 12/17/22 21:14 Sodium 136 mmol/L (136-145) 12/17/22 21:14 Potassium 4.1 mmol/L (3.5-5.1) 12/17/22 21:14 Chloride 103 mmol/L (98-107) 12/17/22 21:14 Carbon Dioxide 19 mmol/L (22-29) L 12/17/22 21:14 Anion Gap 18.1 (5-19) 12/17/22 21:14 BUN 23 mg/dL (6-20) H 12/17/22 21:14 Creatinine 1.2 mg/dL (0.5-0.9) H 12/17/22 21:14 GFR Calculation 47.7 mL/min (90-130) L 12/17/22 21:14 Glucose 240 mg/dL (65-115) H 12/17/22 21:14 Calculated Osmolality 294 mOsm/kg (285-295) 12/17/22 21:14 Calcium 9.1 mg/dL (8.5-10.5) 12/17/22 21:14 Total Bilirubin 1.1 mg/dL (0.15-1.2) 12/17/22 21:14 AST 20 U/L (0-32) 12/17/22 21:14 ALT 30 U/L (0-33) 12/17/22 21:14 Alkaline Phosphatase 135 U/L (35-105) H 12/17/22 21:14 Total Protein 7.0 g/dL (6.6-8.7) 12/17/22 21:14 Albumin 4.2 g/dL (3.5-5.2) 12/17/22 21:14 Globulin 2.8 g/dL (1.3-4.6) 12/17/22 21:14 No radiology studies performed this visit EKG Data EKG 1: EKG interpretation date: 12/17/22 EKG interpretation time: 21:25 Prior EKG tracings: not available for review Interpretation: EKG shows a sinus rhythm with a regular rate at [address] elevation or ectopy is noted. Artifact is noted on the EKG. No prior exam was available for comparison. Computer generated interpretation: Sinus rhythm, normal EKG, unconfirmed report. Discharge Plan Discharge Patient Disposition: Home Clinical Impression: Acute anxiety Condition: Stable Prescriptions: No Action nitroglycerin 0.4 mg tablet, sublingual 0.4 mg sublingual Q5M PRN (Reason: chest pain) Qty: 25 3RF Rx Instructions: do not exceed 3 doses per episode atorvastatin 40 mg tablet 40 mg PO DAILY 90 Days Qty: 90 3RF clopidogrel 75 mg tablet 75 mg PO DAILY 90 Days Qty: 90 1RF Farxiga 10 mg tablet 10 mg PO DAILY 30 Days Qty: 30 5RF cyclobenzaprine 5 mg tablet See Rx Instructions .ROUTE .COMPLEX Qty: 120 5RF Dose Instruction: TAKE 1 TO 2 TABLETS BY MOUTH THREE TIMES DAILY NEEDED FOR MUSCLE SPASM . D O NOT EXCEED 6 PER 24 HOURS Rx Instructions: TAKE 1 TO 2 TABLETS BY MOUTH THREE TIMES DAILY NEEDED FOR MUSCLE SPASM . DO NOT EXCEED 6 PER 24 HOURS fluoxetine 40 mg capsule 40 mg PO DAILY 90 Days Qty: 90 1RF gabapentin 600 mg tablet 600 mg PO TID 90 Days Qty: 270 1RF glipizide 10 mg tablet extended release 24hr 10 mg PO BID 90 Days Qty: 180 1RF isosorbide mononitrate 30 mg tablet extended release 24 hr 30 mg PO DAILY 90 Days Qty: 90 1RF lisinopril 20 mg tablet 20 mg PO DAILY 90 Days Qty: 90 1RF ropinirole 0.5 mg tablet 0.5 mg PO .at bedtime 30 Days Qty: 90 1RF Ozempic 0.25 mg or 0.5 mg(2 mg/1.5 mL) pen injector 0.5 mg SUBCUT .WEEKLY 30 Days Qty: 1.5 2RF valacyclovir 500 mg tablet 500 mg PO Q12H 3 Days Qty: 6 1RF amlodipine 5 mg tablet 5 mg PO DAILY 30 Days Qty: 30 3RF fluticasone propionate 50 mcg/actuation spray,suspension 1 spray intranasal Q12H Qty: 15.8 5RF Rx Instructions: administer into each nostril ondansetron HCl 4 mg tablet 4 mg PO Q8H PRN (Reason: nausea and vomiting) Qty: 30 5RF hydroxyzine HCl 25 mg tablet See Rx Instructions .ROUTE .COMPLEX Qty: 180 0RF Dose Instruction: TAKE 1 TABLET BY MOUTH TWICE DAILY NEEDED FOR PANIC OR INSOMNIA FOR 90 DAYS Rx Instructions: TAKE 1 TABLET BY MOUTH TWICE DAILY NEEDED FOR PANIC OR INSOMNIA FOR 90 DAYS metoprolol succinate 25 mg tablet extended release 24 hr 12.5 mg PO BEDTIME 90 Days Qty: 45 0RF Hold Instructions: Home Medication placed on hold at Doctor's office aspirin 81 mg Tablet,Chewable 81 mg PO DAILY Discharge Orders: Discharge ED (Routine); Ordered 12/17/22 Ordered By: Alireza Camejo Referrals: Serena Caicedo MD [Primary Care Provider] - Discharge Diet: Usual diet Discharge Activity: Increase activity as tolerated Patient Instructions: Anxiety (ED) Activity Restrictions/Additional Instructions: Home and rest. Activity as tolerated. Drink plenty water and fluids. Continue with routine medications. Follow-up with primary care for further instructions. Coding Level of Care Code ED [employer] for Aj Sam
--- NOTE | 2022-12-17 21:09 | ECG_ITS ---
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 Measurements Intervals [place] Rate: 89 P: 32 [place]: 146 QRS: 13 QRSD: 82 T: 44 QT: 384 QTc: 469 Interpretive Statements SINUS RHYTHM Compared to ECG 03/28/2021 15:37:20 No significant changes Electronically Signed On 12-17-2022 22:51:18 CDT by Randy Gomes M.D. [id number]
[2022-12-17] MEDS: LORazepam 2 mg/mL INJ 1 mL IVP (21:11)
[2022-12-17 21:19] LABS: Basophils % 0.5 %; Eosinophils # 0.2 10^3/uL (0.0-0.8); Eosinophils % 3.3 %; Hematocrit 42.7 % (36-47); Lymphocytes # 1.6 10^3/uL (0.8-4.8); Lymphocytes % 24.3 %; Mean Corpuscular HGB Conc 32.6 g/dL (30-55); Mean Corpuscular Hemoglobin 25.6 pg (27-33); Mean Corpuscular Volume 78.5 fl (85-98); Mean Platelet Volume 9.2 fL (7.4-10.4); Monocytes # 0.3 10^3/uL (0.2-0.9); Monocytes % 4.6 %; Neutrophils # 4.27 10^3/uL (1.8-7.7); Neutrophils % 66.1 %; Nucleated Red Blood Cells % 0 %; Platelet Count 199 10^3/cmm (157-399); Red Blood Count 5.44 10^6/uL (3.85-5.65); Red Cell Distribution Width 13.4 % (12.1-15.1); White Blood Count 6.46 10^3/uL (3.29-11.43)
[2022-12-17 21:35] LABS: Alanine Aminotransferase 30 U/L (0-33); Albumin Level 4.2 g/dL (3.5-5.2); Alkaline Phosphatase 135 U/L (35-105); Anion Gap 18.1 (5-19); Aspartate Amino Transferase 20 U/L (0-32); Blood Urea Nitrogen 23 mg/dL (6-20); Calcium 9.1 mg/dL (8.5-10.5); Carbon Dioxide 19 mmol/L (22-29); Chloride 103 mmol/L (98-107); Globulin 2.8 g/dL (1.3-4.6); Glomerular Filtration Rate 47.7 mL/min (90-130); Glucose 240 mg/dL (65-115); Osmolality Calculated 294 mOsm/kg (285-295); Potassium 4.1 mmol/L (3.5-5.1); Sodium 136 mmol/L (136-145); Total Bilirubin 1.1 mg/dL (0.15-1.2)
[2022-12-17 22:43] VITALS: BP 115/80; PULSE 86; RESP 16; O2SAT 98
== END 2022-12-17 22:28 | disposition home or self-care (01) ==
PROVIDERS: Emergency Provider Nurse Practitioner Family; PCP Family Medicine
DX: F41.9 Anxiety disorder, unspecified (principal); Z79.02 Long term (current) use of antithrombotics/antiplatelets; Z79.82 Long term (current) use of aspirin; Z79.84 Long term (current) use of oral hypoglycemic drugs; Z87.891 Personal history of nicotine dependence; I25.10 Atherosclerotic heart disease of native coronary artery without angina pectoris; E11.9 Type 2 diabetes mellitus without complications; E78.5 Hyperlipidemia, unspecified; I10 Essential (primary) hypertension; I25.2 Old myocardial infarction
CPT/HCPCS: 36415; 80053; 85025; 93005; 96374; 99284; J2060

== ENCOUNTER 2022-12-19 16:41 | Inpatient (IN) | payer BC, SELFPAY ==
[2022-12-19 16:42] VITALS: BP 118/82; PULSE 111; TEMP 36.7; O2SAT 98
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
[2022-12-19] MEDS: LORazepam 2 mg/mL INJ 1 mL IM (17:03)
[2022-12-19 17:33] LABS: Amphetamines Screen Urine Negative (Negative); Barbiturates Screen Urine Negative (Negative); Benzodiazepines Screen Urine Positive (Negative); Cocaine Screen Urine Negative (Negative); Opiate Screen Urine Negative (Negative); PCP Screen Urine Negative (Negative); THC Screen Urine Negative (Negative)
--- NOTE | 2022-12-19 17:56 | PC.NURSE ---
96 hr rights reviewed with patient, with the assistance of [facility] armed security guard Joel @[phone]. No questions or verbalized needs made by patient at this time. Patient copy left at bedside with patient.
[2022-12-19 18:09] VITALS: BP 101/70; PULSE 107; RESP 16; TEMP 36.9; O2SAT 96
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
[2022-12-19 19:31] LABS: Basophils # 0.1 10^3/uL (0.0-0.1); Basophils % 0.6 %; Eosinophils # 0.3 10^3/uL (0.0-0.8); Eosinophils % 3.5 %; Lymphocytes # 2.6 10^3/uL (0.8-4.8); Mean Corpuscular HGB Conc 31.8 g/dL (30-55); Mean Corpuscular Hemoglobin 25.9 pg (27-33); Mean Corpuscular Volume 81.4 fl (85-98); Mean Platelet Volume 9.2 fL (7.4-10.4); Monocytes # 0.4 10^3/uL (0.2-0.9); Monocytes % 5.2 %; Neutrophils # 4.97 10^3/uL (1.8-7.7); Neutrophils % 58.4 %; Nucleated Red Blood Cells % 0 %; Platelet Count 228 10^3/cmm (157-399); Red Blood Count 5.53 10^6/uL (3.85-5.65); Red Cell Distribution Width 13.6 % (12.1-15.1); White Blood Count 8.51 10^3/uL (3.29-11.43)
[2022-12-19 19:50] LABS: Alanine Aminotransferase 26 U/L (0-33); Alkaline Phosphatase 137 U/L (35-105); Anion Gap 15.9 (5-19); Aspartate Amino Transferase 17 U/L (0-32); Blood Urea Nitrogen 14 mg/dL (6-20); Calcium 9.1 mg/dL (8.5-10.5); Carbon Dioxide 20 mmol/L (22-29); Chloride 105 mmol/L (98-107); Globulin 3.3 g/dL (1.3-4.6); Glomerular Filtration Rate 66.5 mL/min (90-130); Glucose 164 mg/dL (65-115); Osmolality Calculated 288 mOsm/kg (285-295); Potassium 3.9 mmol/L (3.5-5.1); Sodium 137 mmol/L (136-145); Total Bilirubin 0.7 mg/dL (0.15-1.2); Total Protein 7.3 g/dL (6.6-8.7)
[2022-12-19 19:52] LABS: Acetaminophen < 5.0 ug/mL (10-30); Alcohol Level < 10 mg/dL (0-10); Salicylate < 0.3 mg/dL (3-10)
[2022-12-19 20:06] VITALS: BP 112/70; PULSE 107; RESP 18; TEMP 36.6; O2SAT 99
[2022-12-20 06:00] VITALS: BP 113/76; PULSE 100; RESP 20; O2SAT 99
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
[2022-12-20 14:00] VITALS: BP 147/88; PULSE 83; RESP 17; TEMP 36.8; O2SAT 98
[2022-12-20] MEDS: ropinirole 0.25 mg Tablet 0.5 MG PO ×2 (18:19→20:25)
[2022-12-20] MEDS: fluticasone nasal spray 16gm Btl 1 SPRAY INTRANASAL (18:20)
[2022-12-20 20:22] VITALS: BP 119/78; PULSE 88; RESP 20; TEMP 36.9; O2SAT 98
[2022-12-20] MEDS: metoprolol succinate ER (24 HR) 25 mg Tablet 12.5 MG PO (20:25)
[2022-12-20] MEDS: BuSPIRONE 10 mg Tablet PO (20:25)
[2022-12-20] MEDS: gabapentin 300 mg Capsule 600 MG PO (20:26)
[2022-12-20] MEDS: calcium carbonate 500 mg Chew Tablet 1000 MG PO (20:42)
[2022-12-20] MEDS: trazodone 50 mg Tablet PO (23:51)
[2022-12-21 06:00] VITALS: BP 114/79; PULSE 69; RESP 16; TEMP 36.6; O2SAT 93
[2022-12-21] MEDS: isosorbide mononitrate ER 30 mg Tablet PO (08:37)
[2022-12-21] MEDS: clopidogrel 75 mg Tablet PO (08:37)
[2022-12-21] MEDS: gabapentin 300 mg Capsule 600 MG PO ×3 (08:38→20:20)
[2022-12-21] MEDS: BuSPIRONE 10 mg Tablet PO ×2 (08:38→20:20)
[2022-12-21] MEDS: atorvastatin 40 mg Tablet PO (08:38)
[2022-12-21] MEDS: amlodipine 5 mg Tablet PO (08:38)
[2022-12-21] MEDS: fluoxetine 20 mg Capsule 60 MG PO (08:38)
[2022-12-21] MEDS: aspirin 81 mg Chew Tablet PO (08:38)
[2022-12-21] MEDS: lisinopril 20 mg Tablet PO (08:38)
[2022-12-21] MEDS: fluticasone nasal spray 16gm Btl 1 SPRAY INTRANASAL ×2 (08:54→20:21)
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
[2022-12-21] MEDS: acetaminophen 325 mg Tablet 650 MG PO (12:11)
[2022-12-21 14:00] VITALS: BP 101/65; PULSE 86; RESP 20; TEMP 36.7; O2SAT 97
[2022-12-21 20:08] VITALS: BP 98/62; PULSE 76; RESP 17; TEMP 36.5; O2SAT 99
[2022-12-21] MEDS: ropinirole 0.25 mg Tablet 0.5 MG PO (20:20)
[2022-12-21] MEDS: metoprolol succinate ER (24 HR) 25 mg Tablet 12.5 MG PO (20:20)
[2022-12-22 06:00] VITALS: BP 131/86; PULSE 86; RESP 18; TEMP 36.8; O2SAT 99
[2022-12-22] MEDS: aspirin 81 mg Chew Tablet PO (08:26)
[2022-12-22] MEDS: clopidogrel 75 mg Tablet PO (08:27)
[2022-12-22] MEDS: BuSPIRONE 10 mg Tablet PO ×2 (08:27→20:15)
[2022-12-22] MEDS: amlodipine 5 mg Tablet PO (08:27)
[2022-12-22] MEDS: gabapentin 300 mg Capsule 600 MG PO ×3 (08:27→20:15)
[2022-12-22] MEDS: atorvastatin 40 mg Tablet PO (08:27)
[2022-12-22] MEDS: fluoxetine 20 mg Capsule 60 MG PO (08:27)
[2022-12-22] MEDS: isosorbide mononitrate ER 30 mg Tablet PO (08:27)
[2022-12-22] MEDS: lisinopril 20 mg Tablet PO (08:27)
[2022-12-22] MEDS: fluticasone nasal spray 16gm Btl 1 SPRAY INTRANASAL ×2 (08:28→20:15)
[2022-12-22 13:47] VITALS: BP 100/66; PULSE 88; RESP 20; TEMP 36.9; O2SAT 98
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
[2022-12-22] MEDS: metoprolol succinate ER (24 HR) 25 mg Tablet 12.5 MG PO (20:15)
[2022-12-22] MEDS: ropinirole 0.25 mg Tablet 0.5 MG PO (20:15)
[2022-12-22] MEDS: trazodone 50 mg Tablet PO (20:15)
[2022-12-22 20:34] VITALS: BP 132/81; PULSE 87; RESP 16; TEMP 36.6; O2SAT 99
[2022-12-23 06:00] VITALS: BP 111/71; PULSE 79; RESP 20; O2SAT 100
[2022-12-23] MEDS: aspirin 81 mg Chew Tablet PO (08:58)
[2022-12-23] MEDS: isosorbide mononitrate ER 30 mg Tablet PO (08:58)
[2022-12-23] MEDS: fluoxetine 20 mg Capsule 60 MG PO (08:58)
[2022-12-23] MEDS: gabapentin 300 mg Capsule 600 MG PO (08:58)
[2022-12-23] MEDS: clopidogrel 75 mg Tablet PO (08:59)
[2022-12-23] MEDS: atorvastatin 40 mg Tablet PO (08:59)
[2022-12-23] MEDS: amlodipine 5 mg Tablet PO (08:59)
[2022-12-23] MEDS: lisinopril 20 mg Tablet PO (08:59)
[2022-12-23] MEDS: BuSPIRONE 10 mg Tablet PO (08:59)
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
[2022-12-23 09:08] VITALS: BP 111/71; PULSE 79; RESP 20; O2SAT 100
== END 2022-12-23 11:06 | disposition home or self-care (01) | DRG 885 ==
LOC: ER 17:15 → NP 18:36
PROVIDERS: Admitting Provider Psychiatry & Neurology Psychiatry; Emergency Provider Emergency Medicine; PCP Family Medicine; Visit Provider Psychiatry & Neurology Psychiatry
DX: F32.1 Major depressive disorder, single episode, moderate (principal); R45.851 Suicidal ideations; F41.9 Anxiety disorder, unspecified; Z63.4 Disappearance and death of family member; F41.0 Panic disorder [episodic paroxysmal anxiety]; Z91.411 Personal history of adult psychological abuse; Z91.410 Personal history of adult physical and sexual abuse; F43.10 Post-traumatic stress disorder, unspecified; I25.10 Atherosclerotic heart disease of native coronary artery without angina pectoris; I10 Essential (primary) hypertension; Z79.02 Long term (current) use of antithrombotics/antiplatelets
CPT/HCPCS: 36415; 80053; 80306; 80307; 85025; 96372; 97150; 97165; 99285; J2060

== ENCOUNTER → 2023-02-02 10:48 | Outpatient (BNVA) | payer BC, SELFPAY | PROVIDERS: PCP Family Medicine; Visit Provider Family Medicine | DX: N18.9 Chronic kidney disease, unspecified (principal); F41.0 Panic disorder [episodic paroxysmal anxiety]; F43.10 Post-traumatic stress disorder, unspecified; F41.1 Generalized anxiety disorder; F32.1 Major depressive disorder, single episode, moderate; F51.02 Adjustment insomnia; E11.42 Type 2 diabetes mellitus with diabetic polyneuropathy | CPT/HCPCS: 80048; 83036 ==

== ENCOUNTER → 2023-02-26 10:14 | Outpatient (BNVA) | payer BC, SELFPAY | PROVIDERS: PCP Family Medicine; Visit Provider Family Medicine | DX: M25.552 Pain in left hip (principal); F41.1 Generalized anxiety disorder; F32.1 Major depressive disorder, single episode, moderate; F41.0 Panic disorder [episodic paroxysmal anxiety]; E11.42 Type 2 diabetes mellitus with diabetic polyneuropathy; Z23 Encounter for immunization | CPT/HCPCS: 73502 ==

== ENCOUNTER → 2023-04-06 11:49 | Outpatient (BNVA) | payer BC, SELFPAY ==
[2023-03-30 11:12] VITALS: BP 116/76; BMI 34.8
== END ==
PROVIDERS: PCP Family Medicine; Visit Provider Emergency Medicine
DX: E11.42 Type 2 diabetes mellitus with diabetic polyneuropathy (principal); F41.1 Generalized anxiety disorder
CPT/HCPCS: 82962

== ENCOUNTER → 2023-06-13 10:26 | Outpatient (BNVA) | payer BC, SELFPAY ==
[2023-03-30 11:12] VITALS: BP 116/76; BMI 34.8
== END ==
PROVIDERS: PCP Family Medicine; Referring Provider Family Medicine; Visit Provider Family Medicine
DX: N95.1 Menopausal and female climacteric states (principal); N95.0 Postmenopausal bleeding
CPT/HCPCS: 83001; 83002; 85025

== ENCOUNTER → 2023-07-24 09:56 | Outpatient (BNVA) | payer BC, SELFPAY ==
[2023-03-30 11:12] VITALS: BP 116/76; BMI 34.8
== END ==
PROVIDERS: PCP Family Medicine; Visit Provider Family Medicine
DX: I10 Essential (primary) hypertension; E11.9 Type 2 diabetes mellitus without complications; E78.5 Hyperlipidemia, unspecified; E11.42 Type 2 diabetes mellitus with diabetic polyneuropathy
CPT/HCPCS: 80048; 80061; 83036

== ENCOUNTER 2023-08-09 11:25 | Inpatient (IN) | payer BC, SELFPAY ==
[2023-03-30 11:12] VITALS: BP 116/76; BMI 34.8
[2023-08-09] VITALS (14 sets, daily range): BP systolic 125–176; BP diastolic 74–124; PULSE 69–83; RESP 13–19; TEMP 36.6–36.8; O2SAT 95–100; BMI 33.9
--- NOTE | 2023-08-09 11:27 | ECG_ITS ---
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 Measurements Intervals Atkins Rate: 83 P: 28 MD: 141 QRS: 15 QRSD: 86 T: 33 QT: 385 QTc: 455 Interpretive Statements SINUS RHYTHM MINIMAL ST DEPRESSION [0.025+ mV ST DEPRESSION] Compared to ECG 12/17/2022 21:09:53 ST (T wave) deviation now present Electronically Signed On 08-09-2023 15:49:24 CDT by Patrick Alvarez M.D. [id number]
--- NOTE | 2023-08-09 11:53 | XR_ITS ---
WS: [id number] Exam: XR chest 1V portable [id number] Date/Time of Exam: 08/09/2023 12:06 PM Reason For Exam: dyspnea/cough Comparison 03/28/2021. Lungs are clear and fully expanded. Normal cardiomediastinal silhouette and regional bony elements. M ild plaque atelectasis in the LEFT base. XR/XR chest 1V portable [id number] IMPRESSION: 1. No acute cardiopulmonary finding.
[2023-08-09] MEDS: aspirin 81 mg Chew Tablet 324 MG PO (12:15)
--- NOTE | 2023-08-09 12:19 | ED_ITS ---
HPI - Chest Pain 2 General: Chief Complaint: Chest Pain Stated Complaint: chest pains Time Seen by Provider: 08/09/23 11:50 Source: patient Mode of arrival: ambulatory History of Present Illness: 48-year-old female with a known history of coronary disease presents emergency room with complaint of chest pain for the last 3 days pressure in the center of her chest feels like it elephant sitting on her chest that she describes it. She has a history of diabetes mellitus as well as poorly controlled per her own report. Several years ago she had a ST elevation [place] resulting in 2 stents being placed she does not believe she has had any stress testing or cardiac evaluation since then. She does still take aspirin daily as well as clopidogrel. She reports slight increase in swelling the lower extremities. She normally has chronic two-pillow orthopnea in the last couple of nights that has worsened to 4 pillow orthopnea. complaint: chest pain Pertinent past history: coronary artery disease Onset (ago): day(s) (3) Timing of current episode: episodic Prior episodes: Yes Onset: during rest Pain location: substernal Pain radiation: none Severity: mild Quality: tightness and aching Relieving factors: nothing Exacerbating factors: nothing Associated symptoms: Reports dyspnea; Deny abdominal pain, diaphoresis, fever(s), leg edema, nausea, palpitations, sense of impending doom, syncope or vomiting Review of Systems 2 Const: Denies: fever(s), chills or diaphoresis Card: Reports: swelling of feet/ankles, dyspnea on exertion and orthopnea; Denies: chest pain, palpitations or syncope Resp: Reports: dyspnea GI: Denies: abdominal pain, nausea or vomiting : Reports: flank pain; Denies: dysuria, urinary frequency or urinary urgency Musc: Denies: neck pain or back pain Skin/Breast: Denies: rash PFSH ED 2 PFSH: Medical History Psychiatric care Major depressive disorder Anemia Chest pain Dyslipidemia Carpal tunnel syndrome, bilateral Diabetes Does not tolerate metformin. CAD (coronary artery disease) HTN (hypertension) Diabetic neuropathy ST elevation (STEMI) myocardial infarction involving left circumflex coronary artery Shortness of breath Surgical History S/P cholecystectomy S/P coronary artery stent placement x2 April 2018 S/P appendectomy Social History Smoking and tobacco/nicotine status: never used tobacco/nicotine Quit status (tobacco/nicotine): has quit using Alcohol intake: never Substance/Drug Use: never Current gender identity: Female Female Reproductive History: Spontaneous abortions: No Physical Exam 2 Const: COMMON NORMALS: no acute distress GENERAL APPEARANCE: cooperative and comfortable ORIENTATION/CONSCIOUSNESS: Yes awake, Yes oriented to person, Yes oriented to place and Yes oriented to time HENMT: COMMON NORMALS: normocephalic, atraumatic and hearing grossly normal bilaterally HEAD & SCALP: normocephalic and atraumatic Resp: COMMON NORMALS: normal respiratory effort, No retractions, No use of accessory muscles and clear to auscultation bilaterally AUSCULTATION: clear to auscultation bilaterally Cardio: COMMON NORMALS: regular rate, regular rhythm and No murmurs present (Cardio) RATE: regular rate RHYTHM: regular rhythm GI: COMMON NORMALS: Soft to palpation and No hepatosplenomegaly present A USCULTATION: Yes normoactive bowel sounds PALPATION: Yes Soft to palpation, No Tenderness to palpation present (GI), No Guarding due to palpation present (GI) and Yes No hepatosplenomegaly present Extremity: COMMON NORMALS: normal to inspection, capillary refill normal, no clubbing, cyanosis or edema, no calf tenderness and no pedal edema Neuro: SENSORIUM/ORIENTATION: Yes oriented to person, Yes oriented to place and Yes oriented to time Skin: COMMON NORMALS: no rashes or lesions noted GENERAL SKIN EXAM: no rashes or lesions noted Course 2 Vital Signs: Vital signs: Vital Signs Temperature 97.7 F 08/10/23 07:57 Pulse Rate 80 08/10/23 07:57 Respiratory Rate 12 08/10/23 07:57 Blood Pressure 155/77 08/10/23 07:57 Pulse Oximetry 99 08/10/23 07:57 Oxygen Delivery Me thod Room Air 08/10/23 07:57 MDM - Chest Pain Medical Decision Making EKG and cardiac enzymes are negative despite this patient continues to have chest pain even after topical nitro. Discussed Dr. Gomes patient did have some RCA lesions over the 50% or less when she initially had her angiogram and stents in 2019 will admit the patient to the hospitalist continue on heparin and nitro drips and consult cardiology for further evaluation Medical Records I reviewed the patient's medical records. Lab Data I reviewed the patient's lab results. 08/10/23 03:57 08/10/23 03:57 Radiology Impressions Chest X-Ray 08/09/23 11:53 IMPRESSION: 1. No acute cardiopulmonary finding. Laboratory Results WBC 5.77 10^3/uL (3.29-11.43) 08/09/23 12:22 RBC 5.23 10^6/uL (3.85-5.65) 08/09/23 12:22 Hgb 13.50 g/dL (11.27-16.99) 08/09/23 12:22 Hct 42.4 % (36-47) 08/09/23 12:22 MCV 81.1 fl (85-98) L 08/09/23 12:22 MCH 25.8 pg (27-33) L 08/09/23 12:22 MCHC 31.8 g/dL (30-55) 08/09/23 12:22 RDW 13.4 % (12.1-15.1) 08/09/23 12:22 Plt Count 184 10^3/cmm (157-399) 08/09/23 12:22 MPV 9.1 fL (7.4-10.4) 08/09/23 12:22 Neut % (Auto) 53.3 % 08/09/23 12:22 Lymph % (Auto) 36.0 % 08/09/23 12:22 [place] % (Auto) 5.0 % 08/09/23 12:22 Eos % (Auto) 3.1 % 08/09/23 12:22 Baso % (Auto) 0.7 % 08/09/23 12:22 Neut # (Auto) 3.07 10^3/uL (1.8-7.7) 08/09/23 12:22 Lymph # (Auto) 2.1 10^3/uL (0.8-4.8) 08/09/23 12:22 [place] # (Auto) 0.3 10^3/uL (0.2-0.9) 08/09/23 12:22 Eos # (Auto) 0.2 10^3/uL (0.0-0.8) 08/09/23 12:22 Baso # (Auto) 0.0 10^3/uL (0.0-0.1) 08/09/23 12:22 Nucleated RBC % (auto) 0 % 08/09/23 12:22 Nucleated RBCs # 0.0 /100WBC 08/09/23 12:22 Sodium 139 mmol/L (136-145) 08/09/23 12:22 Potassium 4.1 mmol/L (3.5-5.1) 08/09/23 12:22 Chloride 105 mmol/L (98-107) 08/09/23 12:22 Carbon Dioxide 22 mmol/L (22-29) 08/09/23 12:22 Anion Gap 16.1 (5-19) 08/09/23 12:22 BUN 12 mg/dL (6-20) 08/09/23 12:22 Creatinine 0.8 mg/dL (0.5-0.9) 08/09/23 12:22 GFR Calculation 75.9 mL/min (90-130) L 08/09/23 12:22 Glucose 216 mg/dL (65-115) H 08/09/23 12:22 Calculated Osmolality 294 mOsm/kg (285-295) 08/09/23 12:22 Calcium 8.9 mg/dL (8.5-10.5) 08/09/23 12:22 Magnesium 2.0 mg/dL (1.7-2.3) 08/09/23 12:22 Total Bilirubin 0.6 mg/dL (0.15-1.2) 08/09/23 12:22 AST 19 U/L (0-32) 08/09/23 12:22 ALT 32 U/L (0-33) 08/09/23 12:22 Alkaline Phosphatase 134 U/L (35-105) H 08/09/23 12:22 Creatine Kinase 76 U/L (26-192) 08/09/23 12:22 Troponin T Baseline 15 ng/L (0-10) H 08/09/23 12:22 Troponin T 120 Minute 14.86 ng/L (0-10) H 08/09/23 14:36 Delta Troponin T -0.14 ABS# (0-10) L 08/09/23 14:36 NT-Pro-B Natriuret Pep 62 pg/mL (0-125) 08/09/23 12:22 Total Protein 6.8 g/dL (6.6-8.7) 08/09/23 12:22 Albumin 4.1 g/dL (3.5-5.2) 08/09/23 12:22 Globulin 2.7 g/dL (1.3-4.6) 08/09/23 12:22 Urine Color Yellow (Yellow) 08/09/23 12:37 Urine Appearance Clear (CLEAR) 08/09/23 12:37 Urine pH 5 (5-7) 08/09/23 12:37 Ur Specific [place] 1.010 (1.005-1.030) 08/09/23 12:37 Urine Protein Neg (Negative) 08/09/23 12:37 Urine Glucose (UA) 4+ (Normal) H 08/09/23 12:37 Urine Ketones Negative (Negative) 08/09/23 12:37 Urine Blood Neg (Negative) 08/09/23 12:37 Urine Nitrate Negative (Negative) 08/09/23 12:37 Urine Bilirubin Neg (Negative) 08/09/23 12:37 Urine Urobilinogen Norm mg/dL (Negative) 08/09/23 12:37 Ur Leukocyte Esterase Negative (Negative) 08/09/23 12:37 All radiology interpretation(s) finalized by discharge Discharge Plan Discharge Patient Disposition: Admitted As Inpatient Admit Provider: Andrew Aragon Clinical Impression: Unstable angina CAD (coronary artery disease) Qualifiers: Coronary Disease-Associated Artery/Lesion type: [place] artery [place] vs. 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
[2023-08-09 12:28] LABS: Basophils % 0.7 %; Eosinophils # 0.2 10^3/uL (0.0-0.8); Eosinophils % 3.1 %; Hematocrit 42.4 % (36-47); Lymphocytes # 2.1 10^3/uL (0.8-4.8); Mean Corpuscular HGB Conc 31.8 g/dL (30-55); Mean Corpuscular Hemoglobin 25.8 pg (27-33); Mean Corpuscular Volume 81.1 fl (85-98); Mean Platelet Volume 9.1 fL (7.4-10.4); Monocytes # 0.3 10^3/uL (0.2-0.9); Neutrophils # 3.07 10^3/uL (1.8-7.7); Neutrophils % 53.3 %; Nucleated Red Blood Cells % 0 %; Platelet Count 184 10^3/cmm (157-399); Red Blood Count 5.23 10^6/uL (3.85-5.65); Red Cell Distribution Width 13.4 % (12.1-15.1); White Blood Count 5.77 10^3/uL (3.29-11.43)
[2023-08-09] MEDS: nitroglycerin 1 gm/inch oint Pkt 1 INCH TOPICAL (12:35)
[2023-08-09 12:45] LABS: Add Urine Microscopic? NO; Charge for UA Resulting for Rev
[2023-08-09 12:49] LABS: Troponin(5th) Baseline 15 ng/L (0-10)
[2023-08-09 12:55] LABS: Bilirubin Urine Neg (Negative); Blood Urine Neg (Negative); Glucose Urine UA 4+ (Normal); Ketones Urine Negative (Negative); Leukocyte Esterase Urine Negative (Negative); Nitrate Urine Negative (Negative); Protein Urine Neg (Negative); Urine Appearance Clear (CLEAR); Urine Color Yellow (Yellow); Urobilinogen Urine Norm (Negative); pH Urine 5 (5-7)
[2023-08-09 13:03] LABS: Alanine Aminotransferase 32 U/L (0-33); Albumin Level 4.1 g/dL (3.5-5.2); Alkaline Phosphatase 134 U/L (35-105); Anion Gap 16.1 (5-19); Aspartate Amino Transferase 19 U/L (0-32); Blood Urea Nitrogen 12 mg/dL (6-20); Calcium 8.9 mg/dL (8.5-10.5); Carbon Dioxide 22 mmol/L (22-29); Chloride 105 mmol/L (98-107); Creatine Phosphokinase 76 U/L (26-192); Creatinine Clr Calc Pharmacy 97.8584; Globulin 2.7 g/dL (1.3-4.6); Glomerular Filtration Rate 75.9 mL/min (90-130); Glucose 216 mg/dL (65-115); NT Pro B Type Natriuretic Pept 62 pg/mL (0-125); Osmolality Calculated 294 mOsm/kg (285-295); Potassium 4.1 mmol/L (3.5-5.1); Sodium 139 mmol/L (136-145); Total Bilirubin 0.6 mg/dL (0.15-1.2); Total Protein 6.8 g/dL (6.6-8.7)
--- NOTE | 2023-08-09 14:04 | ECG_ITS ---
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 Measurements Intervals [place] Rate: 72 P: 48 DC: 147 QRS: 18 QRSD: 87 T: 41 QT: 409 QTc: 448 Interpretive Statements SINUS RHYTHM Compared to ECG 08/09/2023 11:27:48 ST (T wave) deviation no longer present Electronically Signed On 08-09-2023 15:55:11 CDT by Patrick Alvarez M.D. [id number]
[2023-08-09 14:57] LABS: Troponin 5 2HR 14.86 ng/L (0-10)
[2023-08-09 15:00] LABS: Troponin 5 2HR Delta -0.14 ABS# (0-10)
[2023-08-09 16:34] LABS: Platelet Count 185 10^3/cmm (157-399)
--- NOTE | 2023-08-09 16:58 | P.CONIM_ITS ---
Providers/Reason For Consult 2 Consulting Physician/Specialty*: Randy Gomes MD/ Cardiology Reason for Consult*: Chest pain Requesting Physician: Dr Buck Attending Physician: Andrew Aragon MD Primary Care Provider: Serena Caicedo MD History of Present Illness History of Present Illness Kimberly Agarwal is a 48 year old female with past medical history of hypertension, CAD with prior NM who presented to hospital with on and off chest pain for the last 3 days. It is substernal radiating to the jaw and arms. EKG does not show significant ischemic changes. Troponins have been negative. She is on nitro drip however pain is continuing and typical symptoms. Review of Systems 2 Const: Reports: fatigue; Denies: fever(s) Eyes: Denies: change in vision ENMT: Denies: throat pain Card: Reports: chest pain Resp: Reports: dyspnea GI: Reports: nausea : Denies: flank pain Medications/Allergies Home Medications Medication Instructions Recorded Confirmed Last Taken Type aspirin 81 mg chewable tablet 81 mg PO QAM 03/28/21 08/09/23 08/09/23 History (Phillip Chewable Low Dose Aspirin) nitroglycerin 0.4 mg sublingual 0.4 mg sublingual Q5M PRN chest 12/23/22 08/09/23 Unknown Rx tablet pain #30 tabs hydroxyzine HCl 50 mg tablet 50 mg PO TID PRN anxiety or sleep 01/18/23 08/09/23 Unknown Rx 30 days #90 tabs ondansetron HCl 4 mg tablet 4 mg PO Q8H PRN nausea and 04/11/23 08/09/23 Unknown Rx vomiting #30 tabs clonazepam 0.5 mg tablet 0.25 mg (1/2 x 0.5 mg) PO BID PRN 05/16/23 08/09/23 Unknown Rx panic attack(s) #30 tabs buspirone 10 mg tablet 10 mg PO 0900,2099 30 days #60 tabs 06/28/23 08/09/23 08/09/23 Rx cyclobenzaprine 5 mg tablet See Rx Instructions .Route 07/24/23 08/09/23 Unknown Rx .COMPLEX #120 tabs fluticasone propionate 50 1 spray intranasal Q12H #15.8 mL 07/24/23 08/09/23 08/09/23 Rx mcg/actuation nasal spray,suspension gabapentin 800 mg tablet 800 mg PO TID 90 days #270 tabs 07/24/23 08/09/23 08/09/23 Rx glipizide 10 mg tablet, extended 10 mg PO BID 90 days #180 tabs 07/24/23 08/09/23 08/09/23 Rx release 24 hr isosorbide mononitrate 30 mg 30 mg PO DAILY 90 days #90 tabs 07/24/23 08/09/23 08/09/23 Rx tablet,extended release 24 hr metformin 500 mg tablet,extended 500 mg PO BID 90 days #180 tabs 07/24/23 08/09/23 08/09/23 Rx release 24 hr semaglutide 0.25 mg or 0.5 mg (2 0.5 mg (0.374 mL) SUBCUT .WEEKLY 07/24/23 08/09/23 Unknown Rx mg/1.5 mL) subcutaneous pen 30 days #1.5 mL injector ([employer] simethicone 250 mg capsule 250 mg PO DAILY PRN abdominal 07/24/23 08/09/23 Unknown Rx distention 30 days #30 caps amlodipine 5 mg tablet 5 mg PO QPM 08/09/23 08/09/23 08/08/23 History atorvastatin 40 mg tablet 40 mg PO QPM 08/09/23 08/09/23 08/08/23 History clopidogrel 75 mg tablet 75 mg PO QAM 08/09/23 08/09/23 08/09/23 History dapagliflozin propanediol 10 mg 10 mg PO QAM 08/09/23 08/09/23 08/09/23 History tablet (Farxiga) isosorbide mononitrate 60 mg 60 mg PO DAILY #30 tabs 08/09/23 Unknown Rx tablet,extended release 24 hr lisinopril 20 mg tablet 20 mg PO QAM 08/09/23 08/09/23 Unknown History ropinirole 0.5 mg tablet 0.5 mg PO BEDTIME 08/09/23 08/09/23 08/08/23 History venlafaxine 37.5 mg 37.5 mg PO QPM 08/09/23 08/09/23 08/08/23 History capsule,extended release 24 hr Allergies Allergy/AdvReac Type Severity Reaction Status Date / Time Sulfa (Sulfonamide Allergy Mild ALGY-RASH Verified 07/24/23 07:30 Antibiotics) PFSH Acute 2 PFSH: Medical History Psychiatric care Major depressive disorder Anemia Chest pain Dyslipidemia Carpal tunnel syndrome, bilateral Diabetes Does not tolerate metformin. CAD (coronary artery disease) HTN (hypertension) Diabetic neuropathy ST elevation (STEMI) myocardial infarction involving left circumflex coronary artery Shortness of breath Surgical History S/P cholecystectomy S/P coronary artery stent placement x2 April 2018 S/P appendectomy Social History Smoking and tobacco/nicotine status: never used tobacco/nicotine Quit status (tobacco/nicotine): has quit using Alcohol intake: never Substance/Drug Use: never Current gender identity: Female Female Reproductive History: Spontaneous abortions: No Vitals/I&O/Wt Last Vital Signs Temp 97.9 F 08/09/23 11:37 Pulse 73 08/09/23 16:37 Resp 14 08/09/23 16:37 BP 125/95 08/09/23 16:37 Pulse Ox 98 08/09/23 16:37 O2 Del Method Room Air 08/09/23 16:37 Weight last 48 hrs Weight 210 lb Physical Exam 2 Narrative: GENERAL: Patient is alert, awake and oriented x3. [] NECK: No jugular vein distension. [] HEENT: No cyanosis. No icterus. No pallor. [] HEART: Regular S1 and S2. No murmur, rub or gallop. [] LUNGS: Clear to auscultate bilaterally. [] CENTRAL NERVOUS SYSTEM: Grossly nonfocal. [] EXTREMITIES: Lower extremities with 1+ edema bilaterally. Data 08/10/23 03:57 08/10/23 03:57 A&P Assessment and plan (1) Unstable angina: (2) Dyslipidemia: (3) CAD (coronary artery disease): Qualifiers: Coronary Disease-Associated Artery/Lesion type: [place] artery [place] vs. transplanted heart: [place] heart Associated angina: without angina Qualified Code(s): I25.10 - Atherosclerotic heart disease of [place] coronary artery without angina pectoris (4) HTN (hypertension): Qualifiers: Hypertension type: primary hypertension Qualified Code(s): I10 - Essential (primary) hypertension (5) Diabetes: Qualifiers: Diabetes mellitus type: type 2 Diabetes mellitus correction insulin use: without correction use Diabetes mellitus complication status: with neurologic complications Diabetes mellitus complication detail: with polyneuropathy Qualified Code(s): E11.42 - Type 2 diabetes mellitus with diabetic polyneuropathy Plan Patient has presented with typical severe symptoms of chest pain. Not resolving completely on nitro drip. She has multiple risk factors for CAD and has prior history of NM. We will proceed with coronary angiogram with possible percutaneous coronary intervention. Risks and benefits of the procedure have been discussed. Continue anticoagulation. Order echocardiogram. N.p.o. past midnight. Thank you for involving us with care of this patient. We will continue to follow. Please call with questions. Consult Attestations 2 Medical Necessity Statement: Care expected to cross 2 midnights. Coding Level of Care Code [facility] Unstable angina I20.0 Dyslipidemia E78.5 Coronary artery disease involving [place] coronary artery of [place] heart without angina pectoris I25.10 Coronary Disease-Associated Artery/Lesion type: [place] artery [place] vs. transplanted heart: [place] heart Associated angina: without angina Primary hypertension I10 Hypertension type: primary hypertension Type 2 diabetes mellitus with diabetic polyneuropathy, without long-term current use of insulin E11.42 Diabetes mellitus type: type 2 Diabetes mellitus correction insulin use: without correction use Diabetes mellitus complication status: with neurologic complications Diabetes mellitus complication detail: with polyneuropathy
[2023-08-09] MEDS: heparin drip 25,000 UNIT/500 ML PREMIX 27 UNIT IV (17:10)
[2023-08-09] MEDS: heparin 5,000 unit/mL INJ 1 mL IV (17:11)
--- NOTE | 2023-08-09 17:15 | PM.HP ---
Providers/Chief Complaint Admitting Physician: Andrew Aragon MD Primary Care Provider: Serena Caicedo MD Chief Complaint: chest pains History of Present Illness Kimberly Agarwal is a 48 year old female with history established coronary disease, poorly controlled diabetes not on insulin, patient is stating that her hemoglobin A1c is above 13 which was not 2 weeks ago, presented with chief complaint of 2-week of chest pain associate with shortness of breath and nausea. Patient stating that he started noticing some swelling of arms and legs without change of her medications no significant reaction or anaphylaxis, she could tell because her wedding ring was getting tighter, she did not notice any diarrhea or fever or wheezing. She started noticing chest pain which she is describing as burning sensation in substernal area radiating towards the left shoulder, she also noticed her neck was hurting on the left side which is intermittent without association of food intake or exertional activity. She describing her pain burning sensation 6/10 at the time of evaluation currently she is on heparin and nitroglycerin drip. No significant altered troponin, EKG without significant ST changes, Dr. Matamoros has been consulted Patient is currently on nitroglycerin drip stating her pain is burning sensation at 6 at the time of evaluation Patient is stating that her sugar has not been well-controlled she does not watch her diet, otherwise compliant with her medications, Review of Systems Const: Reports: fatigue; Denies: fever(s) Eyes: Denies: change in vision ENMT: Denies: throat pain Card: Reports: chest pain Resp: Reports: dyspnea GI: Reports: nausea : Denies: flank pain Medications/Allergies Home Medications Medication Instructions Recorded Confirmed Last Taken Type aspirin 81 mg chewable tablet 81 mg PO QAM 03/28/21 08/09/23 08/09/23 History (Phillip Chewable Low Dose Aspirin) nitroglycerin 0.4 mg sublingual 0.4 mg sublingual Q5M PRN chest 12/23/22 08/09/23 Unknown Rx tablet pain #30 tabs hydroxyzine HCl 50 mg tablet 50 mg PO TID PRN anxiety or sleep 01/18/23 08/09/23 Unknown Rx 30 days #90 tabs ondansetron HCl 4 mg tablet 4 mg PO Q8H PRN nausea and 04/11/23 08/09/23 Unknown Rx vomiting #30 tabs clonazepam 0.5 mg tablet 0.25 mg (1/2 x 0.5 mg) PO BID PRN 05/16/23 08/09/23 Unknown Rx panic attack(s) #30 tabs buspirone 10 mg tablet 10 mg PO 0900,2100 30 days #60 tabs 06/28/23 08/09/23 08/09/23 Rx cyclobenzaprine 5 mg tablet See Rx Instructions .Route 07/24/23 08/09/23 Unknown Rx .COMPLEX #120 tabs fluticasone propionate 50 1 spray intranasal Q12H #15.8 mL 07/24/23 08/09/23 08/09/23 Rx mcg/actuation nasal spray,suspension gabapentin 800 mg tablet 800 mg PO TID 90 days #270 tabs 07/24/23 08/09/23 08/09/23 Rx glipizide 10 mg tablet, extended 10 mg PO BID 90 days #180 tabs 07/24/23 08/09/23 08/09/23 Rx release 24 hr isosorbide mononitrate 30 mg 30 mg PO DAILY 90 days #90 tabs 07/24/23 08/09/23 08/09/23 Rx tablet,extended release 24 hr metformin 500 mg tablet,extended 500 mg PO BID 90 days #180 tabs 07/24/23 08/09/23 08/09/23 Rx release 24 hr semaglutide 0.25 mg or 0.5 mg (2 0.5 mg (0.374 mL) SUBCUT .WEEKLY 07/24/23 08/09/23 Unknown Rx mg/1.5 mL) subcutaneous pen 30 days #1.5 mL injector (Ozempic) simethicone 250 mg capsule 250 mg PO DAILY PRN abdominal 07/24/23 08/09/23 Unknown Rx distention 30 days #30 caps amlodipine 5 mg tablet 5 mg PO QPM 08/09/23 08/09/23 08/08/23 History atorvastatin 40 mg tablet 40 mg PO QPM 08/09/23 08/09/23 08/08/23 History clopidogrel 75 mg tablet 75 mg PO QAM 08/09/23 08/09/23 08/09/23 History dapagliflozin propanediol 10 mg 10 mg PO QAM 08/09/23 08/09/23 08/09/23 History tablet (Farxiga) isosorbide mononitrate 60 mg 60 mg PO DAILY #30 tabs 08/09/23 Unknown Rx tablet,extended release 24 hr lisinopril 20 mg tablet 20 mg PO QAM 08/09/23 08/09/23 Unknown History ropinirole 0.5 mg tablet 0.5 mg PO BEDTIME 08/09/23 08/09/23 08/08/23 History venlafaxine 37.5 mg 37.5 mg PO QPM 08/09/23 08/09/23 08/08/23 History capsule,extended release 24 hr Allergies Allergy/AdvReac Type Severity Reaction Status Date / Time Sulfa (Sulfonamide Allergy Mild ALGY-RASH Verified 07/24/23 07:30 Antibiotics) PFSH Acute PFSH: Medical History Psychiatric care Major depressive disorder Anemia Chest pain Dyslipidemia Carpal tunnel syndrome, bilateral Diabetes Does not tolerate metformin. CAD (coronary artery disease) HTN (hypertension) Diabetic neuropathy ST elevation (STEMI) myocardial infarction involving left circumflex coronary artery Shortness of breath Surgical History S/P cholecystectomy S/P coronary artery stent placement x2 April 2018 S/P appendectomy Social History Smoking and tobacco/nicotine status: never used tobacco/nicotine Quit status (tobacco/nicotine): has quit using Alcohol intake: never Substance/Drug Use: never Current gender identity: Female Female Reproductive History: Spontaneous abortions: No Vitals/I&O/Wt Last Vital Signs Temp 97.9 F 08/09/23 11:37 Pulse 73 08/09/23 16:37 Resp 14 08/09/23 16:37 BP 125/95 08/09/23 16:37 Pulse Ox 98 08/09/23 16:37 O2 Del Method Room Air 08/09/23 16:37 Weight last 48 hrs Weight 95.254 kg Physical Exam Narrative: Awake and alert Euvolemic I do not see any sign of active heart failure GCS 15 nonfocal neuroexam Hemodynamically stable Hypertensive Currently on room air Complaining of burning sensation substernally 6/10 On heparin and nitroglycerin drip Nonfocal neuroexam Currently on room air Data 08/09/23 16:25 08/09/23 12:22 A&P Assessment and plan (1) Major depressive disorder: Qualifiers: Major depression recurrence: single episode Active/Remission status: currently active Major depression episode severity: moderate Qualified Code(s): F32.1 - Major depressive disorder, single episode, moderate (2) BETSY (generalized anxiety disorder): (3) HTN (hypertension): Qualifiers: Hypertension type: primary hypertension Qualified Code(s): I10 - Essential (primary) hypertension (4) CAD (coronary artery disease): Qualifiers: Coronary Disease-Associated Artery/Lesion type: [place] artery [place] vs. transplanted heart: [place] heart Associated angina: without angina Qualified Code(s): I25.10 - Atherosclerotic heart disease of [place] coronary artery without angina pectoris (5) Diabetes: Qualifiers: Diabetes mellitus type: type 2 Diabetes mellitus laborer marine terminal insulin use: without laborer marine terminal use Diabetes mellitus complication status: with neurologic complications Diabetes mellitus complication detail: with polyneuropathy Qualified Code(s): E11.42 - Type 2 diabetes mellitus with diabetic polyneuropathy (6) CKD (chronic kidney disease): Qualifiers: Chronic kidney disease stage: stage 3 (moderate) Chronic kidney disease stage 3 subtype: stage 3a (GFR 45-59) Qualified Code(s): N18.31 - Chronic kidney disease, stage 3a (7) Diabetic neuropathy: Qualifiers: Diabetes mellitus type: type 2 Diabetes mellitus complication detail: diabetic polyneuropathy Qualified Code(s): E11.42 - Type 2 diabetes mellitus with diabetic polyneuropathy (8) Restless legs syndrome: (9) Insomnia: Qualifiers: Insomnia type: adjustment Qualified Code(s): F51.02 - Adjustment insomnia (10) Unstable angina: Plan Unstable angina Significant established coronary disease with underlying diabetes Currently on heparin and nitroglycerin drip ACS protocol has been initiated N.p.o. after midnight Plan for angiogram in the morning Dr. Matamoros consulted Patient has been notified that in case of worsening of pain to let us know in case we need to proceed with angiogram before tomorrow Patient stating that she is poorly controlled diabetic does not use insulin Her hemoglobin A1c as per the patient is above 13 which was done 2 weeks ago I will check A1c level Keep her on insulin with sliding scale N.p.o. after midnight Currently on aspirin Plavix heparin and nitroglycerin Continue lisinopril and metoprolol Full code Diabetic neuropathy No acute exacerbation Chronic kidney disease without acute exacerbation continue gabapentin Keep potassium above 4 magnesium of 2 Check BNP and echo Attestations Medical Necessity Statement*: Anticipating more than 2 midnights in the hospital Diagnoses Current moderate episode of major depressive disorder without prior episode F32.1 Major depression recurrence: single episode Active/Remission status: currently active Major depression episode severity: moderate BETSY (generalized anxiety disorder) F41.1 Primary hypertension I10 Hypertension type: primary hypertension Coronary artery disease involving [place] coronary artery of [place] heart without angina pectoris I25.10 Coronary Disease-Associated Artery/Lesion type: [place] artery [place] vs. transplanted heart: [place] heart Associated angina: without angina Type 2 diabetes mellitus with diabetic polyneuropathy, without long-term current use of insulin E11.42 Diabetes mellitus type: type 2 Diabetes mellitus penitentiary insulin use: without penitentiary use Diabetes mellitus complication status: with neurologic complications Diabetes mellitus complication detail: with polyneuropathy Stage 3a chronic kidney disease N18.31 Chronic kidney disease stage: stage 3 (moderate) Chronic kidney disease stage 3 subtype: stage 3a (GFR 45-59) Diabetic polyneuropathy associated with type 2 diabetes mellitus E11.42 Diabetes mellitus type: type 2 Diabetes mellitus complication detail: diabetic polyneuropathy Restless legs syndrome G25.81 Adjustment insomnia F51.02 Insomnia type: adjustment Unstable angina I20.0
[2023-08-09] MEDS: nitroglycerin drip 50 MG/250 ML PREMIX IV (17:38)
--- NOTE | 2023-08-09 17:39 | PC.NURSE ---
PER HILL, PHARMACIST, HEPARIN AND NITRO DRIP ARE COMPATIBLE TO BE RAN ON Y-SITE TOGETHER.
--- NOTE | 2023-08-09 18:03 | USCV_ITS ---
Kimberly Agarwal Age: 48 Gender: F : 1975 Exam Date: 08/09/2023 19:10 Ordering Phys: Andrew Aragon MD Technologist: BETITO Exam Location: [facility] [place] Indication: c/o Unstable Angina, chest pain x 3 day, history of CAD, history of DM, BP: 149 / 88 HR: 79 Rhythm: Sinus Technical Quality: Adequate MEASUREMENTS (Male / Female) Normal Values 2D ECHO LV Diastolic Diameter PLAX 3.9 cm 4.2 - 5.9 / 3.9 - 5.3 cm IVS Diastolic Thickness 1.7 cm 0.6 - 1.0 / 0.6 - 0.9 cm IVS Systolic Thickness 1.5 cm LVPW Diastolic Thickness 1.1 cm 0.6 - 1.0 / 0.6 - 0.9 cm LVPW Systolic Thickness 1.6 cm LVOT Diameter 2.0 cm LV Ejection Fraction 2D Teich 59.9 % LV Ejection Fraction MOD 2C 64.4 % LV Ejection Fraction 2C AL 65.6 % LA Diameter 3.5 cm LA Sys Volume AL 45.9 cm cubed LA Sys Volume Index AL 21.4 cm cubed/m squared Aorta at Sinotubular Diameter 2.5 cm IVC Diameter 1.7 cm M-MODE LA Ao Ratio MM 1.2 AV Cusp Separation MM 1.6 cm DOPPLER AV Peak Velocity 109.0 cm/s LVOT Peak Velocity 83.0 cm/s AV Area Cont Eq vti 2.1 cm squared AV Area Cont Eq pk 2.3 cm squared MV Peak Velocity 125.0 cm/s MV Area PHT 3.6 cm squared Mitral E to A Ratio 0.8 TV Peak E Velocity 64.0 cm/s PV Peak Velocity 85.0 cm/s FINDINGS Left Ventricle LV systolic function is normal with EF of 55 to 60%. No regional wall motion abnormalities. Grade 1 diastolic dysfunction Right Ventricle Normal in size and function Right Atrium Normal in size Left Atrium Normal in size Mitral Valve Structurally normal mitral valve. Trace mitral regurgitation. Aortic Valve Structurally normal aortic valve. Tricuspid Valve Grossly normal Pulmonic Valve Not well visualized Pericardium Normal Aorta Normal in size IVC Appears to be normal CONCLUSIONS LV systolic function is normal with EF of 55 to 60%. Grade 1 diastolic dysfunction. Trace mitral regurgitation Randy Gomes MD (Electronically Signed) Final Date: 10 Aug 2023 08:25 S
--- NOTE | 2023-08-09 18:14 | ECG_ITS ---
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 Measurements Intervals [place] Rate: 75 P: 26 [place]: 160 QRS: 6 QRSD: 78 T: 35 QT: 367 QTc: 411 Interpretive Statements SINUS RHYTHM NONSPECIFIC ST & T-WAVE ABNORMALITY Compared to ECG 08/09/2023 14:08:21 T-wave abnormality now present Electronically Signed On 08-10-2023 12:36:20 CDT by Randy Gomes M.D. [email or web address]
[2023-08-09 18:32] LABS: Glucose Point of Care 123 mg/dL (70-110)
[2023-08-09] MEDS: lidocaine 2% viscous 15 ML, aluminum-mag hydrox-simethicon 30 ML, sucralfate oral liq 1 GM PO (18:42)
[2023-08-09] MEDS: pantoprazole 40 mg SDV IVP (18:42)
[2023-08-09 19:12] LABS: Troponin 5 6HR 13.99 ng/L (0-10); Troponin 5 6HR Delta -1.01 ng/L (0-12)
[2023-08-09] MEDS: ropinirole 0.25 mg Tablet 0.5 MG PO (20:46)
--- NOTE | 2023-08-09 21:40 | PC.NURSE ---
Spoke with confirmed patient going 8:30am for cardiac catheterization. Heparin gtt to be stopped at 7am.
[2023-08-09 21:50] LABS: Glucose Point of Care 254 mg/dL (70-110)
[2023-08-09] MEDS: hyDROXYzine 25 mg Capsule 50 MG PO (22:02)
[2023-08-09] MEDS: CLONazepam 0.5 mg Tablet 0.25 MG PO (22:03)
--- NOTE | 2023-08-09 22:10 | PC.NURSE ---
Spoke with Dr. Guerrero regarding patient complaints of anxiety, patient is very weepy and states she is worried about having a panic attack. Patient takes PRN hydroxizine and prn clonazapam at home which are not ordered here. continued patients home prn medications for anxiety.
[2023-08-09 22:14] LABS: Estmated Average Glucose 298
[2023-08-09 23:44] LABS: Partial Thromboplastin Time 54.5 SECONDS (23.9-36.7)
[2023-08-10] VITALS (11 sets, daily range): BP systolic 124–160; BP diastolic 77–97; PULSE 65–95; RESP 12–18; TEMP 36.5–36.9; O2SAT 89–99
[2023-08-10] MEDS: fluticasone nasal spray 16gm Btl 1 SPRAY NASAL (01:09)
[2023-08-10 04:28] LABS: Basophils # 0.1 10^3/uL (0.0-0.1); Basophils % 0.8 %; Eosinophils # 0.3 10^3/uL (0.0-0.8); Hematocrit 42.2 % (36-47); Lymphocytes # 2.5 10^3/uL (0.8-4.8); Lymphocytes % 40.7 %; Mean Corpuscular Hemoglobin 25.7 pg (27-33); Mean Corpuscular Volume 80.2 fl (85-98); Mean Platelet Volume 9.8 fL (7.4-10.4); Monocytes # 0.3 10^3/uL (0.2-0.9); Neutrophils # 2.86 10^3/uL (1.8-7.7); Neutrophils % 46.6 %; Nucleated Red Blood Cells % 0 %; Platelet Count 164 10^3/cmm (157-399); Red Blood Count 5.26 10^6/uL (3.85-5.65); Red Cell Distribution Width 13.4 % (12.1-15.1); White Blood Count 6.16 10^3/uL (3.29-11.43)
[2023-08-10 04:58] LABS: Blood Urea Nitrogen 13 mg/dL (6-20); C Reactive Protein 6.2 mg/L (0.0-4.9); Calcium 8.8 mg/dL (8.5-10.5); Carbon Dioxide 22 mmol/L (22-29); Chloride 104 mmol/L (98-107); Creatinine Clr Calc Pharmacy 98.2441; Glomerular Filtration Rate 75.9 mL/min (90-130); Glucose 201 mg/dL (65-115); Magnesium 2.1 mg/dL (1.7-2.3); Osmolality Calculated 292 mOsm/kg (285-295); Sodium 138 mmol/L (136-145)
[2023-08-10 05:12] LABS: Anion Gap 15.9 (5-19); Potassium 3.9 mmol/L (3.5-5.1)
[2023-08-10] MEDS: pantoprazole 40 mg SDV IVP (06:08)
[2023-08-10] MEDS: ondansetron 2 mg/ML SDV 2 mL 4 MG IVP (06:08)
[2023-08-10] MEDS: lisinopril 20 mg Tablet PO (06:08)
[2023-08-10 06:46] LABS: Glucose Point of Care 204 mg/dL (70-110)
[2023-08-10] MEDS: clopidogrel 75 mg Tablet PO (07:21)
[2023-08-10] MEDS: diphenhydrAMINE 50 mg Capsule PO (07:21)
[2023-08-10] MEDS: aspirin 81 mg EC Tablet PO (07:21)
[2023-08-10] MEDS: metoprolol succinate ER (24 HR) 25 mg Tablet PO (07:22)
[2023-08-10] MEDS: sodium chloride 0.9% 1,000 ML 50 ML IV (07:22)
--- NOTE | 2023-08-10 07:45 | XACV_ITS ---
Exam Room: [facility] Ht: 168 cm Wt: 96 kg BSA: 2.15 m2 Gender: Female : 1975 Any Known Allergies: Sulfa Exam Priority: Routine Indication(s): - Unstable angina Procedure(s): Procedure Description: Diagnostic procedure Procedure Description: Left Heart Catheterization Procedure Description: Left ventriculography Procedure Description: Coronary Angiography Diagnostic Cath Status: Urgent Diagnostic Findings * Left Main has no significant disease. * Left Anterior Descending has patent prior stent in proximal vessel.. * Circumflex has patent prior stent in proximal to mid segment with minimal ISR. * Mid Right Coronary Artery: mild to moderate 40% stenosis, JM: 3 flow. * Coronary angiography shows right dominance. Conclusions 1. There is mild coronary artery disease with one vessel disease. 2. Normal left ventricular systolic function. Ejection fraction of 60%. Recommendations * Aggressive risk factor modification. * Outpatient cardiology follow up in 2-3 weeks. Interventional RX Recommendation: medical therapy and/or counseling Diagnostic RX Recommendation: medical therapy and/or counseling Ventriculography Ejection Fraction: 60.0 % Pressures Phase:Rest AO : / ( 0 ) @ 11:42:00 AM 131 / 73 ( 99 ) @ 12:00:00 PM 131 / 73 ( 99 ) @ 12:00:00 PM LV : 138 / -6 / 20 @ 11:59:00 AM 134 / -3 / 21 @ 12:00:00 PM 132 / -3 / 20 @ 12:00:00 PM Valves Phase:DefaultPhase AV : 2.0 @ 11:13:19 AM AV Mean Gradient: 0.0 @ 11:13:19 AM Clinical Evaluation EBL: 5mL-10mL Procedural Details Procedure Consent Obtained. Admit Source: In Patient. Current Diagnosis : Unstable angina. Pre-Procedure Time Out. Identified patient by full name and date of as verbalized by the patient/guarantor. Does the consent match the physician's order: Yes. Accurate & Complete Informed Consent: Yes. Inpatient/Outpatient History & Physical on Chart: Yes. If H&P is completed, is and addenduem needed: No; If yes, is the addendum complete: N/A. Visualize and Verify Site with Patient/Guarantor: N/A. Relevant Radiology Images available: N/A. The risks, benefits, and alternatives of sedation and/or procedure were discussed by physician. The patient agrees to continue. Procedure started. [facility] Clinical Fraility Score: 3: Managing Well. Chalk Tester Indications: Unstable Angina. Chest Pain Symptom Assessment: Typical Angina Symptoms. Cardiovascular Instability: No. Correct patient, site and procedure confirmed by cath team. Current diagnosis: Unstable angina. PERRLA. Strong, equal hand corporate specialist bilaterally. Lungs clear x 5 lobes. IV Site on Arrival: 20 gauge in the left forearm. IV Fluids: 0.9% NaCl at KVO. 200 mL infused prior to oven laborer. Pre Procedural Pulses: bilateral dorsalis pedis was 2+. Pre Procedural Pulses: bilateral posterior tibial was 2+. Pre Procedural Pulses: bilateral radial was 3+. Oxygen started at 3liters/min via nasal canula. right groin was prepped with chloroprep then draped in the usual sterile fashion. right radial was prepped with chloroprep then draped in the usual sterile fashion. Physician notified. Physician arrived. Baseline sample Acquired. HR: 105 BPM. Baseline sample Acquired. HR: 87 BPM. Family updated by prior to the start of the procedure. Physician scrubbed in. Immediate Pre-Procedure Time Out. Correct Patient: Yes; Correct Procedure: Yes; Correct Site: Yes; Correct Patient Position: Yes; Correct Supplies: Yes; Dried Flammable Prep: Yes; Blood Products Available: N/A;. Lidocaine 1% infiltrated to the right groin. Arterial access obtained with micropuncture set. A 5 stateless JL4 catheter in over wire. Multiple views taken of left coronary artery. Catheter removed over the exchange wire. A 5 stateless JR4 catheter in over wire. Multiple views taken of right coronary artery. Catheter removed over the exchange wire. A 5 stateless Angled Pig catheter in over wire. EDP Sample taken: LV 138/-7,20; HR: 76 BPM; SpO2: 93%. LV gram performed in CLARK @ 10 mL/second for a total of 30 mL. Patient EF: Normal. EDP Sample taken: LV Off; HR: 76 BPM; SpO2: 94%. EDP Sample taken: LV 134/-4,21; HR: 79 BPM; SpO2: 95%. Pullback taken: LV 132/-4,20; AO 131/73(99); Mean: 0mmHg, Peak to Peak: 2mmHg, SEP: 20sec/min; HR: 76 BPM; SpO2: 94%. Catheter removed over the exchange wire. [id number]. A Right femoral angiogram was performed to determine safe placement of closure device. A Mynx was successful obtaining hemostatsis at the Right Femoral artery insertion site. lot [id number] EXP 07-29-2025. Mynx placed without complications. No signs or symptoms of hematoma noted. Sterile dressing applied per usual sterile fashion. Post Procedure: Pulses reassessed and unchanged. PERRLA. Strong, equal hand corporate specialist bilaterally. Medication's Wasted: Lidocaine 1% = 10 mL. Medication's Wasted: Heparin = 1000 units. Total IV fluids: 40 mL. Fluoro: 3:01. Contrast type used: Omnipaque 300 mg/mL, 150 mL bottle. Post-op diagnosis: Non obstuctive cad; patent prior stents. Complications: None. Estimated blood loss: 5mL-10mL. Responsiveness - Normal response to verbal stimuli; alert and oriented, PERRLA. Airway - Unaffected, no intervention required; spontaneous ventilation. Circulation: W/N/L, pulses unchanged. Nausea/Vomiting: No. Procedure completed. Vital chart was stopped. Patient transferred by bed to 1st floor. Access Site Site: Right Femoral artery Sheath Size: 6 Fr Hemostasis Method: Mynx Hemostasis Success: Successful Procedure Medications Start: 10:38 AM Stop: 10:38 AM Medication: Versed Amount: 1 mg Route: I.V. Start: 10:40 AM Stop: 10:40 AM Medication: Fentanyl Amount: 50 mcg Route: I.V. Start: 10:45 AM Stop: 10:45 AM Medication: Versed Amount: 1 mg Route: I.V. Start: 10:52 AM Stop: 10:52 AM Medication: Fentanyl Amount: 25 mcg Route: I.V. Start: 11:01 AM Stop: 11:01 AM Medication: Fentanyl Amount: 25 mcg Route: I.V. I, the attending physician, have reviewed and verified all procedure medications. Yes, all medications given per verbal order History/Risk Factors Hypertension: Yes Dyslipidemia: Yes Peripheral Arterial Disease (PAD): No Myocardial Infarction (NV): Yes Obesity: No Renal Disease: No Prior Interventions PCI: Yes CABG: No Valve Surgery: No Date of PCI: 04/23/2018 Report Signatures Finalized by Randy Gomes MD on 08/12/2023 10:55 PM
--- NOTE | 2023-08-10 09:12 | PC.CHAP ---
Pastoral Care Encounter/Spiritual Assessment Type of Contact [] Declined quantitative equity head visit [] Patient/Family/Request visit [] Outpatient visit [] Follow-up visit [] Physician referral [] Code/Alert [x] Routine visit [] Staff referral [] Actively dying [] Patient sleeping [x] Family support [] [] Out of room [] Palliative care [] [] Receiving care in room [] Pre-surgical visit [] Trauma [] Long length of stay [] ICU visit [] Other: Relational/Emotional Strength [x] Patient feels connected with others/family/visitors/staff [] Distress [] Loneliness/isolation [] Abandonment Spirituality of Patient [x] Person of Ivelisse [] Attends Yazdanism of their Ivelisse [x] Believes in Prayer [] Reads Bible or Yarsani materials [] There are Spiritual issues to be addressed Meat 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 Interventions [x] Prayer [x] Active listening [] Non-anxious presence [x] Spiritual/emotional support [] Crisis/trauma care [] Spiritual counseling [] Bereavement support [] Provided bereavement packet [] Provided Bible/devotional materials [] Provided toy/stuffed animal, coloring book to patient or family member [] Provided Communion [] Anointing/Jeannette [] Salvation [x] Completed spiritual assessment [] Other: Impact on Illness or Injury [] Angry [] Fearful [] Anxious [] Often cries [] Exhaustion [] Unable to work [] Unable to attend uatsdin [] Unable to walk/stand [] Unable to read [] Unable to drive [] Unable to eat/drink [] Unable to sleep [] Unable to be with family [] Patient intubated [] Other: Summary Time spent with patient 5 min
--- NOTE | 2023-08-10 10:24 | PM.PN ---
Subjective Subjective: Patient is stating that she felt better after getting GI cocktail however she was extremely anxious last night and required anxiolytics This morning she is not complaining of significant pain She is n.p.o. Awaiting angiogram Vitals/I&O/Wt Last Vital Signs Temp 97.7 F 08/10/23 07:57 Pulse 80 08/10/23 07:57 Resp 12 08/10/23 07:57 BP 155/77 08/10/23 07:57 Pulse Ox 99 08/10/23 07:57 O2 Del Method Room Air 08/10/23 07:57 08/09/23 08/10/23 08/10/23 22:59 06:59 14:59 Intake Total 246.475 / 246.475 232.25 / 478.725 Balance 246.475 / 246.475 232.25 / 478.725 Weight last 48 hrs Weight 94.71 kg Weight 95.98 kg Weight 95.254 kg Physical Exam Narrative: Awake and alert Euvolemic GCS 15 Family at the bedside Nonfocal neuroexam Pleasant cooperative Still on nitroglycerin drip along heparin Data 08/10/23 03:57 08/10/23 03:57 A&P Assessment and plan (1) Major depressive disorder: Qualifiers: Major depression recurrence: single episode Active/Remission status: currently active Major depression episode severity: moderate Qualified Code(s): F32.1 - Major depressive disorder, single episode, moderate (2) Anxiety attack: (3) BETSY (generalized anxiety disorder): (4) HTN (hypertension): Qualifiers: Hypertension type: primary hypertension Qualified Code(s): I10 - Essential (primary) hypertension (5) CAD (coronary artery disease): Qualifiers: Coronary Disease-Associated Artery/Lesion type: [place] artery [place] vs. transplanted heart: [place] heart Associated angina: without angina Qualified Code(s): I25.10 - Atherosclerotic heart disease of [place] coronary artery without angina pectoris (6) Unstable angina: (7) Diabetes: Qualifiers: Diabetes mellitus type: type 2 Diabetes mellitus halfway insulin use: without terminal superintendent use Diabetes mellitus complication status: with neurologic complications Diabetes mellitus complication detail: with polyneuropathy Qualified Code(s): E11.42 - Type 2 diabetes mellitus with diabetic polyneuropathy (8) CKD (chronic kidney disease): Qualifiers: Chronic kidney disease stage: stage 3 (moderate) Chronic kidney disease stage 3 subtype: stage 3a (GFR 45-59) Qualified Code(s): N18.31 - Chronic kidney disease, stage 3a (9) Restless legs syndrome: (10) Insomnia: Qualifiers: Insomnia type: adjustment Qualified Code(s): F51.02 - Adjustment insomnia Plan Plan for angiogram today Continue anxiolytics Continue nitroglycerin and heparin drip Patient is n.p.o. Full code Most likely she will stay until tomorrow No active chest pain Added Protonix along GI cocktail Attestations Medical Necessity Statement*: Angiogram today Coding Level of Care Code Acute Code for Chg Fwd Diagnoses Current moderate episode of major depressive disorder without prior episode F32.1 Major depression recurrence: single episode Active/Remission status: currently active Major depression episode severity: moderate Anxiety attack F41.0 BETSY (generalized anxiety disorder) F41.1 Primary hypertension I10 Hypertension type: primary hypertension Coronary artery disease involving [place] coronary artery of [place] heart without angina pectoris I25.10 Coronary Disease-Associated Artery/Lesion type: [place] artery [place] vs. transplanted heart: [place] heart Associated angina: without angina Unstable angina I20.0 Type 2 diabetes mellitus with diabetic polyneuropathy, without long-term current use of insulin E11.42 Diabetes mellitus type: type 2 Diabetes mellitus halfway insulin use: without terminal superintendent use Diabetes mellitus complication status: with neurologic complications Diabetes mellitus complication detail: with polyneuropathy Stage 3a chronic kidney disease N18.31 Chronic kidney disease stage: stage 3 (moderate) Chronic kidney disease stage 3 subtype: stage 3a (GFR 45-59) Restless legs syndrome G25.81 Adjustment insomnia F51.02 Insomnia type: adjustment
--- NOTE | 2023-08-10 10:38 | W.PM.OPSUD ---
Surgery/Procedure H&P Update DATE OF PROCEDURE: August 10, 2023 DATE H&P PERFORMED: 08/09/23 H&P UPDATE INFORMATION: I have reviewed H&P completed within last 30 days, I have examined patient prior to procedure and No changes to prior documentation PREOP DIAGNOSIS: Unstable angina PRIMARY INDICATION FOR PROCEDURE: Unstable angina PLANNED PROCEDURE: Left heart cath with possible percutaneous coronary intervention PATIENT REASSESSED PRIOR TO SEDATION, WITH NO CHANGE NOTED: Yes PHYSICAL EXAM: alert, oriented x 3, clear to auscultation bilaterally and regular rate & rhythm AIRWAY EVAL/ANESTHESIA PLAN: normal airway, ASA III, Local Anesthesia, Risks, benefits & alternatives of sedation and/or procedure discussed and Patient agrees to continue as planned ADDITIONAL INFORMATION: Moderate sedation
--- NOTE | 2023-08-10 10:43 | PM.PN ---
Subjective Subjective: Patient is doing well. Chest pain has improved. No significant stenosis on coronary angiogram. Vitals/I&O/Wt Last Vital Signs Temp 97.7 F 08/10/23 07:57 Pulse 80 08/10/23 07:57 Resp 12 08/10/23 07:57 BP 155/77 08/10/23 07:57 Pulse Ox 99 08/10/23 07:57 O2 Del Method Room Air 08/10/23 07:57 08/09/23 08/10/23 08/10/23 22:59 06:59 14:59 Intake Total 246.475 / 246.475 232.25 / 478.725 Balance 246.475 / 246.475 232.25 / 478.725 Weight last 48 hrs Weight 208 lb 12.8 oz Weight 211 lb 9.6 oz Weight 210 lb Physical Exam Narrative: GENERAL: Patient is alert, awake and oriented x3. [] NECK: No jugular vein distension. [] HEENT: No cyanosis. No icterus. No pallor. [] HEART: Regular S1 and S2. No murmur, rub or gallop. [] LUNGS: Clear to auscultate bilaterally. [] CENTRAL NERVOUS SYSTEM: Grossly nonfocal. [] EXTREMITIES: Lower extremities with 1+ edema bilaterally. Data 08/10/23 03:57 08/10/23 03:57 A&P Assessment and plan (1) Unstable angina: (2) Dyslipidemia: (3) CAD (coronary artery disease): Qualifiers: Coronary Disease-Associated Artery/Lesion type: [place] artery [place] vs. transplanted heart: [place] heart Associated angina: without angina Qualified Code(s): I25.10 - Atherosclerotic heart disease of [place] coronary artery without angina pectoris (4) HTN (hypertension): Qualifiers: Hypertension type: primary hypertension Qualified Code(s): I10 - Essential (primary) hypertension (5) Diabetes: Qualifiers: Diabetes mellitus type: type 2 Diabetes mellitus petroleum terminal plant operator insulin use: without senior care use Diabetes mellitus complication status: with neurologic complications Diabetes mellitus complication detail: with polyneuropathy Qualified Code(s): E11.42 - Type 2 diabetes mellitus with diabetic polyneuropathy Plan Patient's coronary angiogram demonstrates prior patent stents and no significant stenosis. Patient can be discharged home on optimal medical therapy. Outpatient cardiology follow-up. Attestations Medical Necessity Statement*: Care expected to cross 2 midnights. Coding Level of Care Code Acute Code for Chg Fwd Diagnoses Unstable angina I20.0 Dyslipidemia E78.5 Coronary artery disease involving [place] coronary artery of [place] heart without angina pectoris I25.10 Coronary Disease-Associated Artery/Lesion type: [place] artery [place] vs. transplanted heart: [place] heart Associated angina: without angina Primary hypertension I10 Hypertension type: primary hypertension Type 2 diabetes mellitus with diabetic polyneuropathy, without long-term current use of insulin E11.42 Diabetes mellitus type: type 2 Diabetes mellitus petroleum terminal plant operator insulin use: without petroleum terminal plant operator use Diabetes mellitus complication status: with neurologic complications Diabetes mellitus complication detail: with polyneuropathy
[2023-08-10 11:41] LABS: Glucose Point of Care 201 mg/dL (70-110)
[2023-08-10] MEDS: insulin lispro 100 unit/1 mL SUBCUT (12:34)
--- NOTE | 2023-08-10 16:32 | P.DS_ITS ---
Discharge Providers Date of Admission: 08/09/23 16:10 Date of Discharge: August 10, 2023 Attending Provider at Admission: Andrew Aragon MD Attending Provider at Discharge: Andrew Aragon MD Primary Care Provider: Serena Caicedo MD Diagnoses at Discharge Discharge Diagnosis (1) Unstable angina: Status: Acute (2) Dyslipidemia: Status: Acute (3) CAD (coronary artery disease): Status: Acute Qualifiers: Coronary Disease-Associated Artery/Lesion type: [place] artery [place] vs. transplanted heart: [place] heart Associated angina: without angina Qualified Code(s): I25.10 - Atherosclerotic heart disease of [place] coronary artery without angina pectoris (4) HTN (hypertension): Status: Acute Qualifiers: Hypertension type: primary hypertension Qualified Code(s): I10 - Essential (primary) hypertension (5) Diabetes: Status: Acute Qualifiers: Diabetes mellitus type: type 2 Diabetes mellitus correction insulin use: without terminal superintendent use Diabetes mellitus complication status: with neurologic complications Diabetes mellitus complication detail: with polyneuropathy Qualified Code(s): E11.42 - Type 2 diabetes mellitus with diabetic poly neuropathy Reason for Visit Reason for Visit: chest pains Hospital Course Hospital Course 48-year-old female who was admitted for the management evaluation of chest pain she was put on ACS protocol with heparin drip and nitroglycerin drip, cardiology was consulted, she went for coronary angiogram, nonobstructive coronary disease, please note her symptoms improved with use of Protonix and GI cocktail. She seems to have very anxious personality as well, echo unremarkable. Dr. Gomes cleared her to go home after angiogram. Added Protonix and sucralfate at the time of discharge. Patient will be discharged home with stable hemodynamics. Physical Exam Narrative: Pleasant cooperative Euvolemic No active chest pain Nonfocal neuroexam Discharge Data Studies Completed and Pending Completed Studies During Hospitalization Category Date Time Status XR chest 1V portable [id number] Stat Exams 08/09/23 11:53 Completed CV. echo complete* [id number] Routine Ultrasound 08/09/23 18:03 Completed Pending at discharge Category Date Time Status [employer]OR request for service Routine Exams 08/10/23 07:45 Taken Basic Metabolic Panel AM LABS Lab 08/11/23 04:00 Ordered Complete Blood Count w/Auto AM LABS Lab 08/11/23 04:00 Ordered Platelet Count Q2D Lab 08/11/23 04:00 Ordered Platelet Count Q2D Lab 08/13/23 04:00 Ordered Radiology Impressions Chest X-Ray 08/09/23 11:53 IMPRESSION: 1. No acute cardiopulmonary finding. Laboratory Results WBC 6.16 10^3/uL (3.29-11.43) 08/10/23 03:57 RBC 5.26 10^6/uL (3.85-5.65) 08/10/23 03:57 Hgb 13.50 g/dL (11.27-16.99) 08/10/23 03:57 Hct 42.2 % (36-47) 08/10/23 03:57 MCV 80.2 fl (85-98) L 08/10/23 03:57 MCH 25.7 pg (27-33) L 08/10/23 03:57 MCHC 32.0 g/dL (30-55) 08/10/23 03:57 RDW 13.4 % (12.1-15.1) 08/10/23 03:57 Plt Count 164 10^3/cmm (157-399) 08/10/23 03:57 MPV 9.8 fL (7.4-10.4) 08/10/23 03:57 Neut % (Auto) 46.6 % 08/10/23 03:57 Lymph % (Auto) 40.7 % 08/10/23 03:57 [place] % (Auto) 5.0 % 08/10/23 03:57 Eos % (Auto) 5.0 % 08/10/23 03:57 Baso % (Auto) 0.8 % 08/10/23 03:57 Neut # (Auto) 2.86 10^3/uL (1.8-7.7) 08/10/23 03:57 Lymph # (Auto) 2.5 10^3/uL (0.8-4.8) 08/10/23 03:57 [place] # (Auto) 0.3 10^3/uL (0.2-0.9) 08/10/23 03:57 Eos # (Auto) 0.3 10^3/uL (0.0-0.8) 08/10/23 03:57 Baso # (Auto) 0.1 10^3/uL (0.0-0.1) 08/10/23 03:57 Nucleated RBC % (auto) 0 % 08/10/23 03:57 Nucleated RBCs # 0.0 /100WBC 08/10/23 03:57 APTT 54.5 SECONDS (23.9-36.7) H 08/09/23 23:17 Sodium 138 mmol/L (136-145) 08/10/23 03:57 Potassium 3.9 mmol/L (3.5-5.1) 08/10/23 03:57 Chloride 104 mmol/L (98-107) 08/10/23 03:57 Carbon Dioxide 22 mmol/L (22-29) 08/10/23 03:57 Anion Gap 15.9 (5-19) 08/10/23 03:57 BUN 13 mg/dL (6-20) 08/10/23 03:57 Creatinine 0.8 mg/dL (0.5-0.9) 08/10/23 03:57 GFR Calculation 75.9 mL/min (90-130) L 08/10/23 03:57 Glucose 201 mg/dL (65-115) H 08/10/23 03:57 POC Glucose 201 mg/dL (70-110) H 08/10/23 11:34 Estimat Average Glucose 298 08/09/23 18:43 Hemoglobin A1c 12.0 % (4.0-6.0) H 08/09/23 18:43 Calculated Osmolality 292 mOsm/kg (285-295) 08/10/23 03:57 Calcium 8.8 mg/dL (8.5-10.5) 08/10/23 03:57 Magnesium 2.1 mg/dL (1.7-2.3) 08/10/23 03:57 Total Bilirubin 0.6 mg/dL (0.15-1.2) 08/09/23 12:22 AST 19 U/L (0-32) 08/09/23 12:22 ALT 32 U/L (0-33) 08/09/23 12:22 Alkaline Phosphatase 134 U/L (35-105) H 08/09/23 12:22 Creatine Kinase 76 U/L (26-192) 08/09/23 12:22 Troponin T Baseline 15 ng/L (0-10) H 08/09/23 12:22 Troponin T 120 Minute 14.86 ng/L (0-10) H 08/09/23 14:36 Delta Troponin T -0.14 ABS# (0-10) L 08/09/23 14:36 Troponin T Hi Sens 6Hr 13.99 ng/L (0-10) H 08/09/23 18:43 Troponin T Hi Sens 6Hr Delta -1.01 ng/L (0-12) L 08/09/23 18:43 C-Reactive Protein 6.2 mg/L (0.0-4.9) H 08/10/23 03:57 NT-Pro-B Natriuret Pep 62 pg/mL (0-125) 08/09/23 12:22 Total Protein 6.8 g/dL (6.6-8.7) 08/09/23 12:22 Albumin 4.1 g/dL (3.5-5.2) 08/09/23 12:22 Globulin 2.7 g/dL (1.3-4.6) 08/09/23 12:22 Urine Color Yellow (Yellow) 08/09/23 12:37 Urine Appearance Clear (CLEAR) 08/09/23 12:37 Urine pH 5 (5-7) 08/09/23 12:37 Ur Specific [place] 1.010 (1.005-1.030) 08/09/23 12:37 Urine Protein Neg (Negative) 08/09/23 12:37 Urine Glucose (UA) 4+ (Normal) H 08/09/23 12:37 Urine Ketones Negative (Negative) 08/09/23 12:37 Urine Blood Neg (Negative) 08/09/23 12:37 Urine Nitrate Negative (Negative) 08/09/23 12:37 Urine Bilirubin Neg (Negative) 08/09/23 12:37 Urine Urobilinogen Norm mg/dL (Negative) 08/09/23 12:37 Ur Leukocyte Esterase Negative (Negative) 08/09/23 12:37 Vitals Last Vital Signs Temp 98.4 F 08/10/23 16:00 Pulse 67 08/10/23 16:00 Resp 14 08/10/23 16:00 BP 141/83 08/10/23 16:00 Pulse Ox 96 08/10/23 16:00 O2 Del Method Room Air 08/10/23 16:00 Discharge Plan Discharge Patient Disposition: Home Condition: Stable Prescriptions: New isosorbide mononitrate 60 mg tablet extended release 24 hr 60 mg PO DAILY Qty: 30 0RF pantoprazole [Protonix] 40 mg tablet,delayed release (DR/EC) 40 mg PO DAILY 28 Days Qty: 30 0RF sucralfate [Carafate] 100 mg/mL suspension 1 g PO BID 56 Days Qty: 1120 0RF Continued ondansetron HCl 4 mg tablet 4 mg PO Q8H PRN (Reason: nausea and vomiting) Qty: 30 0RF cyclobenzaprine 5 mg tablet See Rx Instructions .ROUTE .COMPLEX Qty: 120 5RF Dose Instruction: TAKE 1 TO 2 TABLETS BY MOUTH THREE TIMES DAILY NEEDED FOR MUSCLE SPASM . DO NOT EXCEED 6 PER 24 HOURS Rx Instructions: TAKE 1 TO 2 TABLETS BY MOUTH THREE TIMES DAILY NEEDED FOR MUSCLE SPASM . DO NOT EXCEED 6 PER 24 HOURS fluticasone propionate 50 mcg/actuation spray,suspension 1 spray intranasal Q12H Qty: 15.8 5RF Rx Instructions: administer into each nostril gabapentin 800 mg tablet 800 mg PO TID 90 Days Qty: 270 1RF glipizide 10 mg tablet extended release 24hr 10 mg PO BID 90 Days Qty: 180 1RF isosorbide mononitrate 30 mg tablet extended release 24 hr 30 mg PO DAILY 90 Days Qty: 90 1RF metformin 500 mg tablet extended release 24 hr 500 mg PO BID 90 Days Qty: 180 1RF Ozempic 0.25 mg or 0.5 mg(2 mg/1.5 mL) pen injector 0.5 mg SUBCUT .WEEKLY 30 Days Qty: 1.5 2RF simethicone 250 mg capsule 250 mg PO DAILY PRN (Reason: abdominal distention) 30 Days Qty: 30 5RF hydroxyzine HCl 50 mg tablet 50 mg PO TID PRN (Reason: anxiety or sleep) 30 Days Qty: 90 3RF clonazepam 0.5 mg tablet 0.25 mg PO BID PRN (Reason: panic attack(s)) Qty: 30 3RF buspirone 10 mg tablet 10 mg PO 0900,2100 30 Days Qty: 60 3RF aspirin [Phillip Chewable Aspirin] 81 mg Tablet,Chewable 81 mg PO QAM nitroglycerin 0.4 mg Tablet, Sublingual 0.4 mg sublingual Q5M PRN (Reason: chest pain) Qty: 30 0RF lisinopril 20 mg tablet 20 mg PO QAM atorvastatin 40 mg tablet 40 mg PO QPM venlafaxine 37.5 mg capsule,extended release 24hr 37.5 mg PO QPM clopidogrel 75 mg tablet 75 mg PO QAM amlodipine 5 mg tablet 5 mg PO QPM ropinirole 0.5 mg tablet 0.5 mg PO BEDTIME Farxiga 10 mg tablet 10 mg PO QAM Discharge Orders: Discharge Order (Routine); Ordered 08/10/23 Ordered By: Andrew Aragon Referrals: Kenya Harley FNP [Nurse Practitioner] - 09/11/23 1:00 pm Serena Caicedo MD [Primary Care Provider] - 08/16/23 11:15 am Discharge Diet: Usual diet Discharge Activity: Increase activity as tolerated Patient Instructions: Isosorbide Mononitrate (By mouth) (Imdur, Imdur ER, Ismo), Coronary Angioplasty (DC), Opioid Safety, Post Angiogram Home Care Instructions, Pain Management Activity Restrictions/Additional Instructions: You are seen today with complaints of chest discomfort. Your cardiac enzymes and EKG did not show any acute changes. Recommend that you increase your Imdur to 60 mg daily. Case management will make arrangement for outpatient follow-up with cardiology. Discharge Attestations Time Spent in Discharge Care*: greater than 30 min Quality Metrics Clinical Quality Measures [ No reported AMI, CVA or VTE this stay] Coding Level of Care Code Acute Code for Chg Fwd Diagnoses Unstable angina I20.0 Dyslipidemia E78.5 Coronary artery disease involving [place] coronary artery of [place] heart without angina pectoris I25.10 Coronary Disease-Associated Artery/Lesion type: [place] artery [place] vs. transplanted heart: [place] heart Associated angina: without angina Primary hypertension I10 Hypertension type: primary hypertension Type 2 diabetes mellitus with diabetic polyneuropathy, without long-term current use of insulin E11.42 Diabetes mellitus type: type 2 Diabetes mellitus correction insulin use: without terminal superintendent use Diabetes mellitus complication status: with neurologic complications Diabetes mellitus complication detail: with polyneuropathy
[2023-08-10 16:45] LABS: Glucose Point of Care 191 mg/dL (70-110)
== END 2023-08-10 17:13 | disposition home or self-care (01) | DRG 287 ==
LOC: ER 15:54 → CSU 16:10
PROVIDERS: Internal Medicine; Admitting Provider Internal Medicine; Emergency Provider Family Medicine; PCP Family Medicine; Visit Provider Internal Medicine
PROC: 4A023N7 Measurement of Cardiac Sampling and Pressure, Left Heart, Percutaneous Approach (ICD-10-PCS; principal; 2023-08-10 10:00)
DX: I25.110 Atherosclerotic heart disease of native coronary artery with unstable angina pectoris (principal); E78.5 Hyperlipidemia, unspecified; I10 Essential (primary) hypertension; E11.65 Type 2 diabetes mellitus with hyperglycemia; E11.22 Type 2 diabetes mellitus with diabetic chronic kidney disease; E11.42 Type 2 diabetes mellitus with diabetic polyneuropathy; N18.31 Chronic kidney disease, stage 3a; Z79.84 Long term (current) use of oral hypoglycemic drugs; Z79.85 Long-term (current) use of injectable non-insulin antidiabetic drugs; Z79.02 Long term (current) use of antithrombotics/antiplatelets; Z79.82 Long term (current) use of aspirin; Z95.5 Presence of coronary angioplasty implant and graft; I25.2 Old myocardial infarction; F41.1 Generalized anxiety disorder; G25.81 Restless legs syndrome
CPT/HCPCS: 36415; 36416; 71045; 80048; 80053; 81003; 82550; 82962; 83036; 83735; 83880; 84484; 85025; 85049; 85730; 86140; 93005; 93306; 93458; 96365; 96366; 96367; 96372; 96374; 96375; 96376; 99152; 99153; 99285; C1760; C1769; C1887; C1894; C9113; G0269; J1644; J1815; J2250; J2405; J3010; J3490; J7030; Q0163; Q9967

== ENCOUNTER → 2024-01-17 10:19 | Outpatient (BNVA) | payer BC, SELFPAY ==
[2023-03-30 11:12] VITALS: BP 116/76; BMI 34.8
== END ==
PROVIDERS: Visit Provider Psychiatry & Neurology Psychiatry
DX: Z79.899 Other long term (current) drug therapy (principal)
CPT/HCPCS: 80061; 83036